=== PATIENT | male | born 1975 | race Hispanic/Latino ===

== ENCOUNTER 2016-11-19 06:53 | Inpatient (IN) | payer MEDICARE, OTHER ==
--- NOTE | 2016-11-19 07:44 | ED PDOC ---
HPI: Psych/Substance Abuse Time Seen by Provider: 11/19/16 07:10 Chief Complaint (Nursing): Psychiatric Evaluation Chief Complaint (Provider): suicidal ideation History Per: Patient History/Exam Limitations: no limitations Additional Complaint(s): 41yo male w/ Hx spinal stimulator implanted, depression comes to the ED with family member comes to the ED complaining of suicidal ideations for several days. States he's also been drinking a lot of alcohol recently. He reports leg swelling but denies chest pain or shortness of breath States he's been diagnosed with DVTs, PEs last occurred approximately 6 months ago. Stopped taking Warfarin 6mg, months ago, when his doctor retired. Also notes that while he's had marta filters Last dose of methadone was yesterday. Past Medical History Reviewed: Historical Data, Nursing Documentation, Vital Signs Vital Signs: Last Vital Signs Temp 98.2 F 11/19/16 07:01 Pulse 102 H 11/19/16 07:01 Resp 18 11/19/16 07:01 BP 143/96 H 11/19/16 07:01 Pulse Ox 95 11/19/16 07:01 - Medical History PMH: Deep Vein Thrombosis, Fractures, Pulmonary Embolism Denies: HIV, Chronic Kidney Disease - Surgical History Surgical History: Cholecystectomy - Family History Family History: States: Unknown Family Hx - Living Arrangements Living Arrangements: With Family - Social History Alcohol: > 2 Drinks/Day - Home Medications Home Medications: Ambulatory Orders Medication Instructions Recorded Methadone HCl [Methadose] 160 mg PO DAILY 11/19/16 - Allergies Allergies/Adverse Reactions: Allergies Allergy/AdvReac Type Severity Reaction Status Date / Time No Known Allergies Allergy Verified 05/16/15 18:35 Review of Systems ROS Statement: Except As Marked, All Systems Reviewed And Found Negative Cardiovascular: Negative for: Chest Pain Respiratory: Negative for: Shortness of Breath Psych: Positive for: Suicidal ideation Physical Exam - Reviewed Nursing Documentation Reviewed: Yes Vital Signs Reviewed: Yes - Physical Exam Appears: Positive for: Non-toxic, No Acute Distress Head Exam: Positive for: ATRAUMATIC, NORMAL INSPECTION, NORMOCEPHALIC Skin: Positive for: Warm, Dry Eye Exam: Positive for: EOMI, PERRL Cardiovascular/Chest: Positive for: Regular Rate, Rhythm Respiratory: Positive for: Normal Breath Sounds. Negative for: Rales, Rhonchi, Wheezing Gastrointestinal/Abdominal: Positive for: Normal Exam, Soft. Negative for: Tenderness Extremity: Positive for: Normal ROM - Laboratory Results Result Diagrams: 11/19/16 08:04 11/20/16 05:45 - ECG O2 Sat by Pulse Oximetry: 95 (RA) Pulse Ox Interpretation: Normal Medical Decision Making Medical Decision Makin: Alcohol level elevated. Remained on 1:1. Positive for DVTs in bilateral lower extremities. Patient made aware of findings. Cannot medically clear for psych. Lovenox started as pt noncompliant w coumadin. D/w medicine provider relations specialist Dr Suggs for medical admission and stabilization. ED OBSERVATION Date of observation admission: 11/19/16 Time of observation admission: 09:14 - Progress Note Progress Note: monitored for signs etoh withdrawal and or PE, remained without dyspnea but has acute b/l DVTs. Disposition - Clinical Impression Clinical Impression: Lower extremity deep venous thrombosis, Methadone maintenance therapy patient, Alcohol abuse, Depression - Patient ED Disposition Is Patient to be Admitted: Yes Counseled Patient/Family Regarding: Studies Performed, Diagnosis - Disposition Disposition Time: 09:14 Condition: STABLE - Pt Status Changed To: Hospital Disposition Of: Inpatient - Admit Certification Admit to Inpatient:: After my assessment, the patient will require hospitalization for at least two midnights. This is because of the severity of symptoms shown, intensity of services needed, and/or the medical risk in this patient being treated as an outpatient. - POA Present On Arrival: None Additional Comments - Additional Comments Additional Comments: Scribe Attestation: Documented by Woody Howe acting as a scribe for Mendez Guerrero DO. Provider Scribe Attestation: All medical record entries made by the Scribe were at my direction and personally dictated by me. I have reviewed the chart and agree that the record accurately reflects my personal performance of the history, physical exam, medical decision making, and the department course for this patient. I have also personally directed, reviewed, and agree with the discharge instructions and disposition.
--- NOTE | 2016-11-19 07:55 | CARD ---
APPROVED REPORT EKG Measurement Heart [id number] <Conclusion> Normal sinus rhythm Nonspecific T wave abnormality Abnormal ECG
[2016-11-19 08:12] LABS: BASO # 0.1 K/uL (0.0-0.2); BASO % 0.8 % (0.0-2.0); EOS % 0.1 % (0.0-4.0); HEMATOCRIT 43.5 % (35.0-51.0); LYMPH # 0.9 K/uL (1.0-4.3); LYMPH % 11.4 % (20.0-40.0); MEAN CORPUSCULAR HEMOGLOBIN 24.3 pg (27.0-31.0); MEAN CORPUSCULAR HGB CONC 31.1 g/dL (33.0-37.0); MEAN PLATELET VOLUME 7.5 fl (7.2-11.7); MONO # 0.4 K/uL (0.0-0.8); MONO % 4.9 % (0.0-10.0); NEUT # 6.2 K/uL (1.8-7.0); NEUT % 82.8 % (50.0-75.0); NRBC % 0.1 % (0.0-0.0); RED CELL DISTRIBUTION WIDTH 18.1 % (11.5-14.5); WHITE BLOOD COUNT 7.5 K/uL (4.8-10.8)
[2016-11-19 08:17] LABS: MEAN CELL VOLUME 78.4 fl (80.0-94.0)
[2016-11-19 08:24] LABS: ALB/GLOB RATIO 1.4 (1.0-2.1); ALCOHOL SERUM 287 mg/dl (0-10); ALKALINE PHOSPHATASE 59 U/L (38-126); ALT/SGPT 87 U/L (21-72); AST/SGOT 140 U/L (17-59); BILIRUBIN,TOTAL 0.5 mg/dl (0.2-1.3); BLOOD UREA NITROGEN 12 mg/dl (9-20); CARBON DIOXIDE 21 mmol/L (22-30); CHLORIDE 97 mmol/L (98-107); GFR AFRICAN-AMERICAN > 60; GLUCOSE,RANDOM 80 mg/dL (75-110); POTASSIUM 4.9 MMOL/L (3.6-5.0); SODIUM 140 mmol/l (132-148); TOTAL PROTEIN 6.9 G/DL (6.3-8.2)
[2016-11-19 08:39] LABS: PARTIAL THROMBOPLASTIN TIME 23.7 SECONDS (23.3-32.5)
--- NOTE | 2016-11-19 10:10 | US ---
Bilateral lower extremity ultrasound. Indication: Rule out DVT Technique: Duplex ultrasound evaluation of the bilateral lower extremity Comparison: None available Findings: Right lower extremity: Nonocclusive thrombus involving the distal femoral vein and popliteal vein. The common femoral vein and proximal and mid portions of the femoral vein appear patent. The posterior tibial veins appear patent. Left lower extremity: Nonocclusive thrombus identified involving the mid and distal femoral vein as well as popliteal vein. 1 of the paired posterior tibial veins appears noncompressible without evidence of flow. Fluid collection within the left popliteal fossa measures approximately 5.7 x 2.3 x 2.5 cm compatible with Escamilla's cyst. Impression: Bilateral lower extremity thrombus as above. 5.7 x 2.3 x 2.5 cm left Escamilla's cyst. The treasury associate notified the patient's ER nurse upon completion of the study.
[2016-11-19] MEDS: Enoxaparin 150 mg Syringe SC ONE (10:51)
[2016-11-19 15:05] VITALS: BMI 34.4
[2016-11-19] MEDS ORDERED: Multivitamin (MVI) 10 ML, Thiamine 100 MG, Folic Acid 1 MG in Sodium Chloride 0.9% 1,00... IV ONE (15:09)
[2016-11-19] MEDS: Sodium Chloride 0.9% 1,000 ML IV SCH (19:37)
[2016-11-19] MEDS: Enoxaparin 150 mg Syringe SC SCH (21:10)
[2016-11-20] MEDS: Sodium Chloride 0.9% 1,000 ML IV SCH (00:55)
[2016-11-20 07:54] LABS: ALB/GLOB RATIO 1.2 (1.0-2.1); ALKALINE PHOSPHATASE 43 U/L (38-126); ALT/SGPT 69 U/L (21-72); AST/SGOT 96 U/L (17-59); BILIRUBIN,TOTAL 1.1 mg/dl (0.2-1.3); BLOOD UREA NITROGEN 12 mg/dl (9-20); CALCIUM 7.7 mg/dL (8.4-10.2); CARBON DIOXIDE 29 mmol/L (22-30); CHLORIDE 95 mmol/L (98-107); GFR AFRICAN-AMERICAN > 60; GLUCOSE,RANDOM 66 mg/dL (75-110); POTASSIUM 4.5 MMOL/L (3.6-5.0); SODIUM 136 mmol/l (132-148); TOTAL PROTEIN 5.9 G/DL (6.3-8.2)
[2016-11-20] MEDS: Enoxaparin 150 mg Syringe SC SCH ×2 (08:42→20:41)
--- NOTE | 2016-11-20 12:01 | CP.PCM.CON ---
History of Present Illness - History of Present Illness History of Present Illness: psychiatry consult ordered by dr. irwin reason: alcohol use, suicidal thoughts, depression cc: i came here for help hpi: 41 yo male, living in [place] with family. pt has history of a back injury at work resulting in spinal fx and multiple surgeries including implanting spinal stimulator. pt takes 160mg methadone for pain. he has a history of dvt's, PEs and has a marta filter in place. pt states he stopped taking all of his medications with the exception of the methadone after his doctor retired. over the last 2-3 months he has started drinking heavily- up to 4 pints of vodka daily. he has progressively become more isolated and stopped leaving his home. his anxiety progressed to not wanting to even see his family members. he feels sad, hopeless and reports wishing that he would "not wake up" after drinking alcohol. he has stopped eating and caring for self. it appears he has lost abouty 30lbs in the last 4 months. his last drink was 11/18. he is getting librium on the medical floor. he is denying any a/v hallucinations. no evidence of pelon. he denies using any other substances outside of alcohol. past psych: reports being on a psych unit 2 years ago, did not f/u with outpt treatment. cannot recall meds. pt states he has a nephew who committed suicide. substance use: denies using cigarettes. has tried heroin when ran out of pain meds in past, was dependent on opioid pain meds and is now taking methadone 160mg daily from a clinic (he is given his week supply every saturday) medical: see dr. irwin's admission note. pt with obesity, back injury, s/p marta filter, chronic back injury. uses walker at home. social: , originally [place]. denies legal problems. mse: pt is alert, oriented x 3. mood is depressed. affect tearful. thoughts are linear. speech is appropriate rate, tone and volume. he is mildly tremulous. he reports passive suicidal thoughts. denies plan/intent. states he feels safe here in hospital and want's help. denies auditory/visual hallucinations. fair i/ j. assessment: alcohol use disorder in withdrawal, uncomplicated major depression recurrent moderate recommendation: pt can be admitted to 3 unit when medically cleared by the primary team (pt needs hospital bed/has walker at home) would maintain 1:1 tonight and will reassess tomorrow to discontinue monitor/treat alcohol withdrawal t/c starting an ssri medication when acute alcohol withdrawal is more resolved discussed with dr. irwin's shake loaderpepe Past Patient History - Infectious Disease Hx of Infectious Diseases: None - Tetanus Immunizations Tetanus Immunization: Unknown - Past Medical History & Family History Past Medical History?: Yes - Past Social History Smoking Status: Never Smoked - CARDIAC Hx Cardiac Disorders: Yes Other/Comment: DVT-RIGHT LOWER LEG/LUNGS - PULMONARY Hx Respiratory Disorders: Yes Hx Pulmonary Embolism: Yes - NEUROLOGICAL Hx Neurological Disorder: No - HEENT Hx HEENT Problems: No - RENAL Hx Chronic Kidney Disease: No - ENDOCRINE/METABOLIC Hx Endocrine Disorders: No - HEMATOLOGICAL/ONCOLOGICAL Hx Blood Disorders: No Hx AIDS: No Hx Human Immunodeficiency Virus (HIV): No - INTEGUMENTARY Hx Dermatological Problems: No - MUSCULOSKELETAL/RHEUMATOLOGICAL Hx Musculoskeletal Disorders: Yes Hx Back Pain: Yes Hx Falls: No Hx Fractures: Yes - GASTROINTESTINAL Hx Gastrointestinal Disorders: No - GENITOURINARY/GYNECOLOGICAL Hx Genitourinary Disorders: No - PSYCHIATRIC Hx Psychophysiologic Disorder: Yes Hx Depression: Yes Hx Emotional Abuse: No Hx Physical Abuse: No Hx Substance Use: No - SURGICAL HISTORY Hx Surgeries: Yes Hx Cholecystectomy: Yes Other/Comment: STOMACH BYPASS X 2 , 8 BACK SURGERIES 2002 - ANESTHESIA Hx Anesthesia: Yes Hx Anesthesia Reactions: No Hx Malignant Hyperthermia: No Meds Allergies/Adverse Reactions: Allergies Allergy/AdvReac Type Severity Reaction Status Date / Time No Known Allergies Allergy Verified 05/16/15 18:35 - Medications Medications: Current Medications Chlordiazepoxide (Librium) 50 mg PO Q8 [facility] Enoxaparin Sodium (Lovenox) 130 mg SC Q12 [facility] PRN Reason: Protocol Last Admin: 11/20/16 08:42 Dose: 130 mg Folic Acid (Folic Acid) 1 mg PO DAILY [facility] Sodium Chloride (Sodium Chloride 0.9%) 1,000 mls @ 125 mls/hr IV .Q8H [facility] Stop: 11/20/16 15:31 Last Admin: 11/20/16 00:55 Dose: 125 mls/hr Lorazepam (Ativan) 1 mg PO TID PRN PRN Reason: Agitation Methadone HCl (Methadone) 160 mg PO DAILY [facility] Last Admin: 11/20/16 08:39 Dose: 160 mg Ondansetron HCl (Zofran Inj) 4 mg IVP Q6 PRN PRN Reason: Nausea/Vomiting Last Admin: 11/19/16 15:07 Dose: 4 mg Thiamine HCl (Vitamin B1 Tab) 100 mg PO DAILY [facility] Results - Vital Signs Recent Vital Signs: Last Vital Signs Temp 98.4 F 11/20/16 08:00 Pulse 77 11/20/16 08:00 Resp 18 11/20/16 08:00 BP 147/89 11/20/16 08:00 Pulse Ox 92 L 11/20/16 08:00 - Labs Result Diagrams: 11/19/16 08:04 11/20/16 05:45 Labs: Laboratory Results - last 24 hr 11/19/16 11/20/16 12:30 05:45 Sodium 136 Potassium 4.5 Chloride 95 L Carbon Dioxide 29 Anion Gap 17 BUN 12 Creatinine 0.8 Est GFR ( Amer) > 60 Est GFR (Non-Af Amer) > 60 Random Glucose 66 L Calcium 7.7 L Total Bilirubin 1.1 AST 96 H D ALT 69 Alkaline Phosphatase 43 Total Protein 5.9 L Albumin 3.2 L Globulin 2.7 Albumin/Globulin Ratio 1.2 Urine Opiates Screen Negative Urine Methadone Screen Positive H Ur Barbiturates Screen Negative Ur Phencyclidine Scrn Negative Ur Amphetamines Screen Negative U Benzodiazepines Scrn Negative U Oth Cocaine Metabols Negative U Cannabinoids Screen Negative
--- NOTE | 2016-11-20 19:02 | HP ---
CHIEF COMPLAINT: Suicidal ideation and psychiatric evaluation. HISTORY OF PRESENT ILLNESS: This is a 41-year-old male, known case of chronic back pain treated with spinal stimulator and also has a history of depression and alcohol abuse, who was having suici sagrario ideation for several days. The patient was brought to the Emergency Room where the patient was f ound to be in alcohol withdrawal so the patient was admitted to the medical service and psychiatry is on consult. REVIEW OF SYSTEMS: At this time is positive for jitteriness and alcohol withdrawal symptoms. Review of systems otherwise is negative for headache, dizziness, syncope, loss of consciousness, chest pain , shortness of breath, nausea, vomiting, diarrhea, constipation, joint or extremity pain. Revi ew of systems is positive for jitteriness and tremors. Review of systems of all other organ systems is unremarkable except psychiatric review of systems. PAST MEDICAL HISTORY: Is significant for chronic back pain. The patient's past medical history is a lso significant for hypercoagulable status with mutation and antiphospholipid antibody syndrome . PAST SURGICAL HISTORY: Remarkable for multiple surgeries in the past. PERSONAL HISTORY: The patient is currently a nonsmoker, nondrinker, no substance abuse. MEDICATIONS: The patient is on methadone. SOCIAL HISTORY: The patient lives at home with family. FAMILY HISTORY: Noncontributory. PHYSICAL EXAMINATION: GENERAL: Well-built, well-nourished, overweight 41-year-old male in no acute distress. VITAL SIGNS: Temperature 98.4, pulse 77, respirations 18, blood pressure 147/89. HEENT: Pupils reacting to light. Normocephalic, atraumatic skull. The patient is wearing glasses. NECK: No JVD, no thyromegaly, no lymphadenopathy, no nystagmus. HEART: S1, S2 normal, regular. No significant murmur, gallop or rub is heard. LUNGS: Shows good bilateral air exchange. No rales or rhonchi. ABDOMEN: Soft, nontender, no organomegaly, no fluid. Bowel sounds are plus. EXTREMITIES: The patient does have jitteriness and tremors of upper extremity. The patient otherwis e has no edema, no calf swelling, no tenderness, no acute ischemia. CENTRAL NERVOUS SYSTEM: Essentially unchanged. The patient has also jitteriness consistent with alc ohol withdrawal. DIAGNOSTIC DATA: Available diagnostic data reviewed. WBC 7.5, hemoglobin 13.5, hematocrit 43.5, santi telet 189. PT 10.7, PTT 23.7. Sodium 140, potassium 4.9, chloride 97, bicarbonate 21, BUN 12, creat inine 0.9. SMA-12 shows AST of 140, ALT of 87; otherwise, SMA-12 is unremarkable. EKG does not reve al any acute ST-T changes. Bilateral lower extremity ultrasound shows thrombosis. ADMITTING IMPRESSION: Alcohol withdrawal, alcohol abuse, suicidal ideation, hypercoagulable status, obesity. PLAN: As ordered. The case and plan was discussed with the patient. Fish Suggs MD cc: [id number] TT: 11/20/2016 19:02:22 long
[2016-11-21] MEDS: Enoxaparin 150 mg Syringe SC ONE (09:08)
[2016-11-21] MEDS: Enoxaparin 150 mg Syringe SC SCH ×2 (13:15→20:03)
--- NOTE | 2016-11-21 14:05 | PCM.PYCHPN ---
Psychiatric Progress Note - Psychiatric Progress Note Patient seen today, length of contact: discussed with RN, reviewed chart Patient Chief Complaint: the withdrawal was bad Problems Identified/Issues Discussed: pt calm currently. states he still wants to come to psychiatry for treatment of depression. is agreeable to take zoloft today. reported feeling anxious, tremulous last night. no psychosis/confusion. Medication Change: Yes (start zoloft; team has increased librium) Medical Record Reviewed: Yes Mental Status Examination - Cognitive Function Orientation: Person, Place, Situation, Time Memory: Intact Attention: WNL Concentration: WNL Association: WNL Fund of Knowledge: [facility] Decription of patient's judgement and insights: fair - Mood Mood: Depressed, Anxious - Affect Affect: Depressed - Speech Speech: Appropriate - Formal Thought Process Formal Thought Process: No Impairment - Suicidal Ideation Suicidal Ideation: No Plan: denies suicidal thoughts currently. - Homicidal Ideation Homicidal Ideation: No Goal/Treatment Plan - Goal/Treatment Plan Need for Continued Stay: Remain at risks for inpatient hospitalization, Severe functional impairment Progress Toward Problem(s) and Goals/Treatment Plan: alcohol dependence major depression recurrent moderate remains depressed withdrawal symptoms still present not yet medically cleared will start zoloft to initiate treatment for depression can transfer to 3ns unit when medically cleared will continue to follow
[2016-11-21] MEDS ORDERED: Diatriz Meglumine/Diatriz Sod 30 ML BOTTLE PO ONE (14:09)
[2016-11-21] MEDS ORDERED: Barium Sulfate Susp 2.1% w/v, 2.0% w/w 450 mL Bottle PO ONE (14:09)
--- NOTE | 2016-11-21 14:31 | CP.PCM.CON ---
History of Present Illness - History of Present Illness History of Present Illness: This is a 41 yrs old male who was admitted for shortness of breath, bilateral leg swelling, and back pain. Pt is well known to me because of a h/o frequent thromboembolic disease. I had seen him in 2014 when he had a bilateral lower extremity DVT. 10 yrs prior to that he had another episode of DVT and had a IVC stent placed. He was on coumadin for a few months and was discontinued. 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 He had been on coumdin for 1 yr but stopped taking the coumadin. He started drinking heavily, and was depressed.. He came to the ER with the above symptoms, and was admitted. He has not lost any weight, and has no bleeding from any site. He has a h/o spinal stenosis and has a spinal stimulator in place. He also had suicidal ideation Past Patient History - Infectious Disease Hx of Infectious Diseases: None - Tetanus Immunizations Tetanus Immunization: Unknown - Past Medical History & Family History Past Medical History?: Yes - Past Social History Alcohol: > 2 Drinks/Day - CARDIAC Hx Cardiac Disorders: Yes Other/Comment: DVT-RIGHT LOWER LEG/LUNGS - PULMONARY Hx Pulmonary Embolism: Yes - NEUROLOGICAL Hx Neurological Disorder: No - HEENT Hx HEENT Problems: No - RENAL Hx Chronic Kidney Disease: No - ENDOCRINE/METABOLIC Hx Endocrine Disorders: No - HEMATOLOGICAL/ONCOLOGICAL Hx Human Immunodeficiency Virus (HIV): No - INTEGUMENTARY Hx Dermatological Problems: No - MUSCULOSKELETAL/RHEUMATOLOGICAL Hx Fractures: Yes - GASTROINTESTINAL Hx Gastrointestinal Disorders: No - GENITOURINARY/GYNECOLOGICAL Hx Genitourinary Disorders: No - PSYCHIATRIC Hx Psychophysiologic Disorder: Yes Hx Depression: Yes Hx Emotional Abuse: No Hx Physical Abuse: No Hx Substance Use: No - SURGICAL HISTORY Hx Cholecystectomy: Yes - ANESTHESIA Hx Anesthesia: Yes Hx Anesthesia Reactions: No Hx Malignant Hyperthermia: No Meds Allergies/Adverse Reactions: Allergies Allergy/AdvReac Type Severity Reaction Status Date / Time No Known Allergies Allergy Verified 05/16/15 18:35 - Medications Medications: Current Medications Barium Sulfate (Readi-Cat 2) 150 ml PO ONCE ONE Stop: 11/21/16 14:10 Chlordiazepoxide (Librium) 50 mg PO Q6 [facility] Last Admin: 11/21/16 09:04 Dose: 50 mg Diatrizoate Meglum/Diatrizoate Sod (CarlGastroview 66-10% (30 Ml)) 30 ml PO ONCE ONE Stop: 11/21/16 14:10 Enoxaparin Sodium (Lovenox) 130 mg SC Q12 [facility] PRN Reason: Protocol Last Admin: 11/21/16 13:15 Dose: 130 mg Folic Acid (Folic Acid) 1 mg PO DAILY [facility] Last Admin: 11/21/16 09:07 Dose: 1 mg Lorazepam (Ativan) 1 mg PO TID PRN PRN Reason: Agitation Last Admin: 11/21/16 06:45 Dose: 1 mg Methadone HCl (Methadone) 160 mg PO DAILY [facility] Last Admin: 11/21/16 09:05 Dose: 160 mg Ondansetron HCl (Zofran Inj) 4 mg IVP Q6 PRN PRN Reason: Nausea/Vomiting Last Admin: 11/19/16 15:07 Dose: 4 mg Sertraline HCl (Zoloft) 25 mg PO DAILY [facility] Thiamine HCl (Vitamin B1 Tab) 100 mg PO DAILY [facility] Last Admin: 11/21/16 09:07 Dose: 100 mg Physical Exam - Additional Findings Additional findings: P/E; Alert, well oriented in no acute distress Neck; Supple, no adenopathy Chest; Clear, no rales or rhonchi Heart; RSR, no murmur Abd; Soft, no mass, no h/s megaly Lower extremities are both edematous. Results - Vital Signs Recent Vital Signs: Last Vital Signs Temp 97.5 F L 11/21/16 12:00 Pulse 83 11/21/16 12:00 Resp 18 11/21/16 12:00 BP 147/93 H 11/21/16 12:00 Pulse Ox 93 L 11/21/16 12:00 - Labs Result Diagrams: 11/19/16 08:04 11/20/16 05:45 Assessment & Plan - Assessment and Plan (Free Text) Assessment: Impression; Bilateral lower extremity DVT, r/o pulmonary embolism. as well Alcoholic liver disease R/O malignant process. Continue the Lovenox, and will then switch him to coumadin. Plan: Plan; Will do a ct scan of a chest , abd and pelvis to look for PE or a occult malignancy. - Date & Time Date: 11/21/16 Time: 14:40
[2016-11-22] MEDS ORDERED: Iohexol 240 (50 ml) PO ONE (06:00)
[2016-11-22 07:34] LABS: ALB/GLOB RATIO 1.2 (1.0-2.1); AST/SGOT 79 U/L (17-59); BILIRUBIN,TOTAL 0.3 mg/dl (0.2-1.3); BLOOD UREA NITROGEN 6 mg/dl (9-20); CALCIUM 8.3 mg/dL (8.4-10.2); CARBON DIOXIDE 27 mmol/L (22-30); CHLORIDE 102 mmol/L (98-107); GFR AFRICAN-AMERICAN > 60; GLUCOSE,RANDOM 83 mg/dL (75-110); POTASSIUM 3.7 MMOL/L (3.6-5.0); SODIUM 137 mmol/l (132-148); TOTAL PROTEIN 5.8 G/DL (6.3-8.2)
[2016-11-22 07:38] LABS: HEMATOCRIT 36.3 % (35.0-51.0); MEAN CELL VOLUME 79.6 fl (80.0-94.0); MEAN CORPUSCULAR HEMOGLOBIN 24.5 pg (27.0-31.0); MEAN CORPUSCULAR HGB CONC 30.8 g/dL (33.0-37.0); RED CELL DISTRIBUTION WIDTH 17.7 % (11.5-14.5); WHITE BLOOD COUNT 4.7 K/uL (4.8-10.8)
[2016-11-22 07:39] LABS: ALKALINE PHOSPHATASE 50 U/L (38-126); ALT/SGPT 69 U/L (21-72)
--- NOTE | 2016-11-22 08:13 | PN ---
DATE: 11/21/2016 The patient seen and examined. Interim events noted. Consults noted, appreciated. Psychiatric foll owup and intervention noted and appreciated. The patient remains in progressive care unit on telemet ry monitoring. The patient feels okay. No specific complaint of chest pain or shortness of breath. Still feels tremulousness, but improved, controlled with medication and no real no sign of wit hdrawal. PHYSICAL EXAMINATION: GENERAL: The patient is in no acute distress. VITAL SIGNS: Stable. HEART: S1, S2 normal, regular. LUNGS: Good bilateral air exchange. ABDOMEN: Soft, nontender. EXTREMITIES: No edema, no calf swelling, no tenderness, no acute ischemia. CENTRAL NERVOUS SYSTEM: Essentially unchanged. DIAGNOSTIC DATA: Available diagnostic data reviewed. Overall, patient's general medical condition is stable, alcohol withdrawal is getting under control, still not 100% controlled, though. PLAN: As ordered. DIAGNOSTIC DATA: Available diagnostic data reviewed. Telemetry monitoring does not reveal significa nt arrhythmia. Fish Suggs MD cc: [id number] TT: 11/21/2016 09:20:01 Confirmation # [id number] Dictation # [id number]
[2016-11-22] MEDS: Enoxaparin 150 mg Syringe SC SCH ×2 (08:57→21:04)
--- NOTE | 2016-11-22 09:12 | CP.PCM.PN ---
Subjective - Date & Time of Evaluation Date of Evaluation: 11/22/16 Time of Evaluation: 09:07 - Subjective Subjective: Pt is still having some tremors this morning. He seems alert and awake ,aware about his condition. He is going for a CT scan today to determine if there is any malignancy present, and if there is a pulmonary embolus.Will continue on lovenox. Objective - Vital Signs/Intake and Output Vital Signs (last 24 hours): Temp Pulse Resp BP Pulse Ox 98.3 F 85 18 126/87 95 11/22/16 08:13 11/22/16 08:13 11/22/16 08:13 11/22/16 08:13 11/22/16 08:13 - Medications Medications: Current Medications Chlordiazepoxide (Librium) 50 mg PO Q6 [facility] Last Admin: 11/22/16 09:00 Dose: 50 mg Enoxaparin Sodium (Lovenox) 130 mg SC Q12 [facility] PRN Reason: Protocol Last Admin: 11/22/16 08:57 Dose: 130 mg Folic Acid (Folic Acid) 1 mg PO DAILY [facility] Last Admin: 11/22/16 08:59 Dose: 1 mg Lorazepam (Ativan) 1 mg PO TID PRN PRN Reason: Agitation Last Admin: 11/22/16 04:09 Dose: 1 mg Methadone HCl (Methadone) 160 mg PO DAILY [facility] Last Admin: 11/22/16 09:04 Dose: 160 mg Ondansetron HCl (Zofran Inj) 4 mg IVP Q6 PRN PRN Reason: Nausea/Vomiting Last Admin: 11/19/16 15:07 Dose: 4 mg Sertraline HCl (Zoloft) 25 mg PO DAILY [facility] Last Admin: 11/22/16 08:58 Dose: 25 mg Thiamine HCl (Vitamin B1 Tab) 100 mg PO DAILY [facility] Last Admin: 11/22/16 08:58 Dose: 100 mg - Labs Labs: 11/22/16 06:05 11/22/16 06:05 PT 10.7 SECONDS (9.6-11.2) 11/19/16 08:04 INR 1.03 (0.92-1.08) 11/19/16 08:04 APTT 23.7 SECONDS (23.3-32.5) 11/19/16 08:04
[2016-11-22] MEDS ORDERED: Sodium Chloride 0.9% 50 ML IV ONE (09:59)
[2016-11-22] MEDS ORDERED: Iohexol 300 100 ML IJ ONE (09:59)
--- NOTE | 2016-11-22 10:44 | PN ---
DATE: 11/22/2016 SUBJECTIVE: The patient seen and examined. Interim events noted. Consults noted, appreciated. The patient remains in progressive care unit on telemetry monitoring. The patient feels okay. No speci fic complaint of chest pain, no shortness of breath. PHYSICAL EXAMINATION: GENERAL: The patient is in no acute distress. VITAL SIGNS: Stable. HEART: S1, S2 normal, regular. LUNGS: Good bilateral air exchange. ABDOMEN: Soft, nontender. EXTREMITIES: No calf swelling, no tenderness, no acute ischemia. CENTRAL NERVOUS SYSTEM: Essentially unchanged. DIAGNOSTIC DATA: Available diagnostic data reviewed. Overall, patient's general medical condition is stable. Alcohol withdrawal signs have improved. We will get psychiatric followup for patient for possible transfer to inpatient psych treatment. Case a nd plan discussed with patient. DIAGNOSTIC DATA: Available diagnostic data reviewed. Telemetry monitoring does not reveal significa nt arrhythmia. PLAN: As ordered. Fish Suggs MD cc: [id number] TT: 11/22/2016 10:44:17 Confirmation # [id number] Dictation # [id number] bridgette
--- NOTE | 2016-11-22 13:23 | CT ---
PROCEDURE: CT Chest, Abdomen and Pelvis with intravenous contrast HISTORY: r/o PE, malignancy COMPARISON: CT chest from 06/27/[address] abdomen and pelvis from 06/02/2015 TECHNIQUE: Multidetector CT scan of the chest, abdomen and pelvis was performed after intravenous administration of contrast. Oral contrast was administered. Coronal and sagittal reformatted images were obtained. IV dose administered: 95 mL Omnipaque 300 Radiation dose: Total exam DLP = 1639.58 mGy-cm. FINDINGS: CT CHEST WITH CONTRAST: The examination is of suboptimal diagnostic quality for evaluation of pulmonary embolism due to missed bolus. Allowing for this, there is no large central pulmonary embolism. LUNGS: There is minimal bibasilar atelectasis. No nodule, mass or consolidation. There are no endobronchial lesions. MEDIASTINUM: The heart is normal in size. There is no pericardial effusion. The aorta is normal in caliber. LYMPH NODES: There is a 9 mm pretracheal lymph node. There is no pathologic axillary, mediastinal or hilar lymphadenopathy. PLEURA: No pneumothorax. No pleural fluid. BONES: Within normal limits for the patient's age. OTHER FINDINGS: None. CT ABDOMEN AND PELVIS: LIVER: The liver is enlarged and there is diffuse low-attenuation. No focal mass or ductal dilatation. GALLBLADDER AND BILE DUCTS: Surgically absent. PANCREAS: Normal in size and there is homogeneous enhancement without focal mass or ductal dilatation. SPLEEN: The spleen is enlarged and measures 14 cm in craniocaudad dimension. There is homogeneous enhancement without focal mass. ADRENALS: Both adrenal glands are normal in size. There is a stable 8 mm adenoma in the medial limb of the left adrenal gland. KIDNEYS AND URETERS: Both kidneys are normal in size and there is homogeneous enhancement without solid or cystic mass or hydronephrosis. VASCULATURE: The aorta is normal in caliber. There is normal vascular perfusion. There is stable position of an infrarenal IVC filter. There is mild asymmetric enlargement of the right common femoral vein with a possible partial thrombus however definitive evaluation is limited due to non opacification of all veins. BOWEL: Status post gastric bypass surgery. The proximal small bowel loops are normal in caliber. There is a redundant sigmoid colon and large amount of stool in the colon and fecal stasis in the rectum. The cecum is located in the right mid abdomen. APPENDIX: Not visualized. PERITONEUM: No free fluid. No free air. LYMPH NODES: No enlarged lymph nodes. BLADDER: Normal in appearance. REPRODUCTIVE: Unremarkable. BONES: Status post posterior spinal decompression and fixation with transpedicular screws. A neurostimulator lead is identified in the lower thoracic spine. OTHER FINDINGS: None. IMPRESSION: 1. Evaluation of pulmonary embolism is not possible due to missed bolus. Allowing for this, no large central pulmonary embolism. 2. No evidence of consolidation, pneumothorax or pleural effusion. No mediastinal adenopathy. 3. Status post gastric bypass surgery, severe constipation and fecal stasis in the rectum. No evidence of bowel obstruction. 4. Mild hepatosplenomegaly and hepatic steatosis. 5. No evidence of metastatic disease in the chest, abdomen or pelvis. Additional comments as described above.
[2016-11-22 16:08] VITALS: RESP 20; TEMP 97.8
[2016-11-22 20:12] VITALS: BP 136/88; PULSE 78; O2SAT 96
== END 2016-11-22 22:50 | DRG 300 ==
LOC: H.ER 06:53 → H.EROBSV 09:14 → OBSVTOIN 10:32 → H.ERHOLD 10:32 → H.TEL 12:51 → H.STEP 11-22 22:35
PROVIDERS: ADMIT Internal Medicine; ATTEND Internal Medicine
DX: I82.411 Acute embolism and thrombosis of right femoral vein (principal); F10.239 Alcohol dependence with withdrawal, unspecified; R45.851 Suicidal ideations; I82.431 Acute embolism and thrombosis of right popliteal vein; F11.20 Opioid dependence, uncomplicated; F33.1 Major depressive disorder, recurrent, moderate; Z91.14 Patient's other noncompliance with medication regimen; G89.29 Other chronic pain; Z86.711 Personal history of pulmonary embolism; Z86.718 Personal history of other venous thrombosis and embolism; Z90.49 Acquired absence of other specified parts of digestive tract; E66.9 Obesity, unspecified

== ENCOUNTER 2016-11-22 19:02 | Inpatient (IN) | payer MEDICARE ==
[2016-11-22] MEDS ORDERED: Magnesium Hydroxide Susp 30 ml UD PO PRN (23:21)
[2016-11-22] MEDS ORDERED: Bismuth Subsalicylate 262 mg/15 ml Sus (240 ml) PO PRN (23:21)
[2016-11-22] MEDS ORDERED: Alum-Mag Hydrox-Simethicone Susp (30 mL) PO PRN (23:21)
--- NOTE | 2016-11-23 08:31 | PCM.PSYCH ---
Initial Psychiatric Evaluation - Initial Psychiatric Evaluation Type of Admission: Voluntary Legal Status: Capacity Chief Complaint (in patient's own words): HPI: 41 yo male, , living with family. Pt has history of a back injury at work resulting in spinal fx and multiple surgeries including implanting spinal stimulator. He takes 160mg methadone for pain. he has a history of dvt's , PEs and has a marta filter in place. pt states he stopped taking all of his medications with the exception of the methadone after his doctor retired. over the last 2-3 months he has started drinking heavily- up to 4 pints of vodka daily. he has progressively become more isolated and stopped leaving his home. His anxiety progressed to not wanting to even see his family members. He feels sad, hopeless and reports wishing that he would "not wake up" after drinking alcohol. He has stopped eating and caring for self and has lost about 30 lbs in 4 months. His last drink was 11/18. He was getting librium on the medical floor. No a/v hallucinations. No evidence of pelon. He denies using any other substances outside of alcohol. Past psych: Reports being on a psych unit 2 years ago, did not f/u with outpt treatment. cannot recall meds. Family Hx: Has a nephew who committed suicide Substance use: No cigarette use. Has tried heroin when ran out of pain meds in past, was dependent on opioid pain meds and is now taking methadone 160mg daily from a clinic (he is given his week supply every saturday) MHx: RLE thrombectomy 06/2015, cholecystectomy, gastric banding/reversal, R/L knee surgeries, h/o DVT s/p Marta filter Social: , originally from [place]. denies legal problems. All: NKDA Current Medications: Active Medications Generic Name Dose Route Start Last Admin Trade Name Freq PRN Reason Stop Dose Admin Acetaminophen 650 mg 11/22/16 23:21 Tylenol 325mg Tab PO Q4 PRN Pain, moderate (4-7) Al Hydrox/Mg Hydrox/Simethicone 30 ml 11/22/16 23:21 Maalox Plus 30 Ml PO Q4 PRN Dyspepsia Bismuth Subsalicylate 524 mg 11/22/16 23:21 Pepto-Bismol PO Q4 PRN Diarrhea Chlordiazepoxide 50 mg 11/23/16 04:00 11/23/16 04:19 Librium PO 50 mg Q6 FRANCIA Administration Lorazepam 1 mg 11/22/16 23:59 Ativan PO TID PRN Agitation Magnesium Hydroxide 30 ml 11/22/16 23:21 Milk Of Magnesia PO HS PRN Constipation Methadone HCl 160 mg 11/23/16 09:00 Methadone PO DAILY FRANCIA Past Psychiatric History - Past Psychiatric History Previous Treatment History: Inpatient Pertinent Medical Hx (Current Medical&Sleep Prob, Allergies): Allergies Allergy/AdvReac Type Severity Reaction Status Date / Time No Known Allergies Allergy Verified 05/16/15 18:35 Methadone HCl [Methadose] 160 mg PO DAILY 11/19/16 Enoxaparin Sodium [Lovenox] 130 mg SC Q12 ml 11/22/16 Folic Acid 1 mg PO DAILY tab 11/22/16 LORazepam [Ativan] 1 mg PO TID PRN #0 tab 11/22/16 Methadone 160 mg PO DAILY tab 11/22/16 Ondansetron [Zofran Inj] 4 mg IVP Q6 PRN #0 vial 11/22/16 Sertraline [Zoloft] 25 mg PO DAILY tab 11/22/16 Thiamine [Vitamin B1 Tab] 100 mg PO DAILY tab 11/22/16 chlordiazePOXIDE [Librium] 50 mg PO Q6 cap 11/22/16 Review of Systems - Review of Systems All systems: reviewed and no additional remarkable complaints except - Musculoskeletal Musculoskeletal: Back Pain - Psychiatric Psychiatric: Abnormal Sleep Pattern, Anhedonia, Anxiety, Change in Appetite, Depression, Hopelessness, Irritability, Mood Swings Mental Status Examination - Personal Presentation Personal Presentation: Looks stated age, Obese - Affect Affect: Depressed - Motor Activity Motor Activity: Calm - Reliability in Providing Information Reliability in Providing Information: Good - Speech Speech: Organized - Mood Mood: Depressed, Anxious - Formal Thought Process Formal Thought Process: No Impairment - Obsessions/Compulsions Obsessions: No Compulsions: No - Cognitive Functions Orientation: Person, Place, Situation, Time Sensorium: Alert Attention/Concentration: Attentive Estimate of Intelligence: Average Judgement: Intact, as evidence by: Good judgement, Intact, as evidence by: Insight regarding need for hospitalization Memory: Recent intact, as evidence by: Ability to recall events of the day, Remote intact, as evidenced by: Abilit to recall sig. life events, Remote intact , as evidenced by: Ability to recall historical events - Risk Risk: Diminished functioning - Strength & Assets Inventory Strength & Assets Inventory: Family support, Cooperative - Limitations Limitations: Other (Chronic medical problems) DSM 5 DX - DSM 5 DSM 5 Diagnosis: Major Depressive Disorder, Alcohol Use Disorder - Recommended/Plan of Treatment Treatment Recommendations and Plan of Treatment: 41 yo male w/ Major Depressive Disorder and Alcohol use disorder, presents with severe depressive symptoms, anxiety, poor self care, anhedonia, weight loss / change in appetite. Patient needs acute inpatient psychiatric hospitalization for treatment and stabilization. Plan: -Admit to psychiatry unit -Start Zoloft 50 mg PO Daily, r/b/se reviewed -Individual, group and milieu tx -Medicine consult Projected ELOS: 5-7 days Discharge Plan and Discharge Criteria: Discharge to home when psychiatrically stable - Smoking Cessation Smoking Cessation Initiated: No Reason for not providing: Not indicated, no tobacco use
[2016-11-23] MEDS ORDERED: Enoxaparin 150 mg Syringe SC SCH (09:00)
[2016-11-23] MEDS: Enoxaparin 100 mg Syringe SC SCH ×2 (10:35→21:11)
[2016-11-23] MEDS: Enoxaparin 30 mg Syringe SC SCH ×2 (10:37→21:12)
--- NOTE | 2016-11-23 10:48 | CP.PCM.CON ---
History of Present Illness - History of Present Illness History of Present Illness: This is a 41 yrs old male whom I have known from previous admissions. He has a h /o DVT and Pulmonary embolism. He had a IVC filter placed about 9 yrs ago and was on coumadin. He stopped after 6 months. He redeveloped the DVT and wad admitted to [facility] when I first saw him. 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 He was also positive for anticardiolipin antibody. He was started on coumadin and followed up with me for 2 months but wa not very complaint. He took to drinking, developing cirrhotic changes in the liver and a miDVT bilaterally, and alold splenomegaly. Now he came in again with alcohol withdrawal symptoms with the thrombotic episode. The ct scan of the chest, abdomen and pelvis did not show any malignancy. He has been started on coumadin and transferred to psych unit for his depression. Past Patient History - Infectious Disease Hx of Infectious Diseases: None - Tetanus Immunizations Tetanus Immunization: Unknown - Past Medical History & Family History Past Medical History?: Yes - Past Social History Smoking Status: Never Smoked - CARDIAC Hx Cardiac Disorders: Yes Other/Comment: DVT-RIGHT LOWER LEG/LUNGS - PULMONARY Hx Pulmonary Embolism: Yes - NEUROLOGICAL Hx Neurological Disorder: No - HEENT Hx HEENT Problems: No - RENAL Hx Chronic Kidney Disease: No - ENDOCRINE/METABOLIC Hx Endocrine Disorders: No - HEMATOLOGICAL/ONCOLOGICAL Hx Human Immunodeficiency Virus (HIV): No - INTEGUMENTARY Hx Dermatological Problems: No - MUSCULOSKELETAL/RHEUMATOLOGICAL Hx Fractures: Yes - GASTROINTESTINAL Hx Gastrointestinal Disorders: No Other/Comment: Gastric Bypass with selve - GENITOURINARY/GYNECOLOGICAL Hx Genitourinary Disorders: No - PSYCHIATRIC Hx Depression: Yes Hx Substance Use: No - SURGICAL HISTORY Hx Cholecystectomy: Yes Hx Gastric Bypass Surgery: Yes - ANESTHESIA Hx Anesthesia: Yes Hx Anesthesia Reactions: No Hx Malignant Hyperthermia: No Meds Allergies/Adverse Reactions: Allergies Allergy/AdvReac Type Severity Reaction Status Date / Time No Known Allergies Allergy Verified 05/16/15 18:35 - Medications Medications: Current Medications Acetaminophen (Tylenol 325mg Tab) 650 mg PO Q4 PRN PRN Reason: Pain, moderate (4-7) Al Hydrox/Mg Hydrox/Simethicone (Maalox Plus 30 Ml) 30 ml PO Q4 PRN PRN Reason: Dyspepsia Bismuth Subsalicylate (Pepto-Bismol) 524 mg PO Q4 PRN PRN Reason: Diarrhea Chlordiazepoxide (Librium) 25 mg PO Q6 FRANCIA Enoxaparin Sodium (Lovenox) 100 mg SC Q12 FRANCIA PRN Reason: Protocol Enoxaparin Sodium (Lovenox) 30 mg SC Q12 FRANCIA Folic Acid (Folic Acid) 1 mg PO DAILY FRANCIA Lorazepam (Ativan) 1 mg PO TID PRN PRN Reason: Agitation Magnesium Hydroxide (Milk Of Magnesia) 30 ml PO HS PRN PRN Reason: Constipation Methadone HCl (Methadone) 160 mg PO DAILY FRANCIA Sertraline HCl (Zoloft) 50 mg PO DAILY FRANCIA Warfarin Sodium (Coumadin) 7.5 mg PO QD5 FRANCIA PRN Reason: Protocol Stop: 11/23/16 17:01 Physical Exam - Additional Findings Additional findings: Physical Exam; Alert, well oriented in no acute distress neck; supple, no adenopathy Chest; Clear, no rales or rhonchi Heart; RSR, no murmur Abd; Soft, no mass, no h/s megaly Results - Vital Signs Recent Vital Signs: Last Vital Signs Temp 96.3 F L 11/23/16 05:35 Pulse 80 11/23/16 05:35 Resp 20 11/23/16 05:35 BP 136/99 H 11/23/16 05:35 Pulse Ox - Labs Labs: Laboratory Results - last 24 hr 11/23/16 06:30 PT 11.4 H INR 1.10 H Assessment & Plan - Assessment and Plan (Free Text) Assessment: Plan; , bilateral lower extremity DVT, Hypercoagulable state Alcoholic liver disease - Date & Time Date: 11/23/16 Time: 10:51
--- NOTE | 2016-11-23 14:01 | CON ---
DATE: 11/23/2016 CHIEF COMPLAINT: This is a 41-year-old male who is disabled from his back problem, who also has hist ory of MTHFR mutation related hypercoagulable status who was admitted to medical floor with alcohol w ithdrawal and was stabilized and transferred to geropsych unit for management of his psychiatric issu e. REVIEW OF SYSTEMS: At this time is negative for headache, dizziness, syncope, loss of consciousness, chest pain, shortness of breath, nausea, vomiting, diarrhea, constipation, any new joint or extremit y pain. Positive for psychiatric illness. All other organ systems unremarkable. 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 PAST SURGICAL HISTORY: Remarkable for back related issues. FAMILY HISTORY: Noncontributory. MEDICATIONS: The patient is on multiple, which are as per reconciliation sheet, which was reviewed i n order. ALLERGIES: The patient is not allergic to any medications. PHYSICAL EXAMINATION: GENERAL: Well-built, well-nourished, overweight male, in no acute distress. VITAL SIGNS: Temperature afebrile, pulse 77, respirations 16, blood pressure 130/77. HEENT: Pupils reacting to light. No JVD, no thyromegaly, no lymphadenopathy, no nystagmus. Normoce phalic, atraumatic skull. HEART: S1, S2 normal, regular. LUNGS: Good bilateral air entry. ABDOMEN: Soft, nontender. EXTREMITIES: No edema, no calf swelling, no tenderness, no acute ischemia. CENTRAL NERVOUS SYSTEM: Essentially unchanged and there is no sign of any acute gross focal motor or sensory neurological deficit. DIAGNOSTIC DATA: Available reviewed. 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 PLAN: As ordered. Case and plan discussed with patient. Case and plan also discussed with psychiat risalexy. Fish Suggs MD cc: [id number] TT: 11/23/2016 14:00:53 Confirmation # [id number] Dictation # [id number] en
[2016-11-23 15:32] VITALS: O2SAT 96
[2016-11-24] MEDS: Enoxaparin 100 mg Syringe SC SCH ×2 (09:11→21:09)
[2016-11-24] MEDS: Enoxaparin 30 mg Syringe SC SCH ×2 (09:11→21:09)
--- NOTE | 2016-11-24 09:39 | PN ---
DATE: 11/24/2016 The patient seen and examined. Interim events noted. Consults noted and appreciated. Psychiatric f ollowup and intervention noted and appreciated. The patient remains in geropsych unit. The patient feels okay. No specific medical complaint. No chest pain, no shortness of breath. PHYSICAL EXAMINATION: GENERAL: The patient is in no acute distress. VITAL SIGNS: Stable. HEART: S1, S2 normal, regular. LUNGS: Good bilateral air exchange. ABDOMEN: Soft, nontender. EXTREMITIES: No calf swelling, no tenderness, no acute ischemia. CENTRAL NERVOUS SYSTEM: Essentially unchanged. DIAGNOSTIC DATA: Available diagnostic data reviewed. Hematology/oncology consult noted and apprecia mariajose. Overall, patient's general medical condition is stable. PLAN: As ordered. Fish Suggs MD cc: [id number] TT: 11/24/2016 09:38:31 Confirmation # [id number] Dictation # [id number] tn
--- NOTE | 2016-11-24 09:45 | PCM.PYCHPN ---
Psychiatric Progress Note - Psychiatric Progress Note Patient seen today, length of contact: chart reviewed, dicussed with team, pt seen in room Patient Chief Complaint: feeling depressed down, was at home had started drinking, was evaluated on general medical floor prior to admission. pt had upon admission etoh level of approx. 270, was started on prn librium on general medical floor. currently denies complaints of withdrawal. chart review that pt has been intermittently out of room, has had limited participation in recreational and therapy groups. Team meeting prior was limited 2nd pt receiving medical treatment. Social working is in process of completing full assessment. Pt has been evaluated by hematology and cardiology. Is receiving lovenox subcutaneously. Pt is has orders for methadone, prn librium and prn lorazepam. Staff report vital signs have been stable, pt has been free of falls. reports currently and prior to admission has had decreased appetite. pt/staff deny presence of wounds/ ulcers- albumin level is low 3.1. Pt has decreased platelets and is receiving lovenox- pt/staff deny presence of ecchymosis. pt was started on Zoloft 25mg upon admission po-received two doses thus far. denies notable side effects. Problems Identified/Issues Discussed: decreased mood, decreased self care, recent relapse of etoh of up to 4 pt vodka per day, estrangement from family, multiple medical illness. Medical Problems: multiple per chart Diagnostic Results: per psychiatry per medicine per nursing per social work per recreational therapy per dietary/nutrition DSM 5 Symptoms Update: anhedonia, substance use, mood disorder, family circumstance, change in level of function, isolation Medication Change: No Medical Record Reviewed: Yes Consults ordered or reviewed: per chart Mental Status Examination - Cognitive Function Orientation: Person, Place, Situation, Time Memory: Intact Attention: WNL Concentration: WNL Association: [facility] Fund of Knowledge: [facility] Decription of patient's judgement and insights: impaired - Mood Mood: Depressed, Anxious - Affect Affect: Constricted, Depressed - Speech Speech: Soft - Formal Thought Process Formal Thought Process: No Impairment - Suicidal Ideation Plan: thoughts without plan - Homicidal Ideation Homicidal Ideation: No Goal/Treatment Plan - Goal/Treatment Plan Need for Continued Stay: Remain at risks for inpatient hospitalization, Severe depression anxiety Progress Toward Problem(s) and Goals/Treatment Plan: inpt milieu vital signs and assessment per protocol and per status q 15 min observation and per clinical status, pt is in room near nursing station adjust meds per status -pt recently started on sertraline 25mg po once day vital signs must be taken before and administration of benziodiazepines as pt is receiving methadone 2nd to possible respiratory depression as well as after administration for a minimum of 2 q 15 min and the obtainment of b/p more than 90/60 and respiratory rate of 12 bpm or higher. falls precautions/bleeding precautions staff to encourage pt oob of bed prn and or change of position to decrease likelihood of thrombi/pneumonia/ulcers-wounds discharge planning in progress Estimated Date of D/C: 11/30/16 If changed, why: defers - Smoking Cessation Smoking Cessation Initiated: No Reason for not providing: defers
--- NOTE | 2016-11-25 07:53 | PN ---
DATE: 11/25/2016 MEDICAL FOLLOWUP The patient is seen and examined. Interim events noted. Consults noted and appreciated. Psychiatri c followup and intervention noted and appreciated. The patient remains in geropsych unit. The patie nt is sleepy, arousable. Denies any specific medical complaints. PHYSICAL EXAMINATION: GENERAL: The patient is in no acute distress. VITAL SIGNS: Stable. HEART: S1, S2 normal, regular. LUNGS: Good bilateral air exchange. ABDOMEN: Soft, nontender. EXTREMITIES: No edema, no calf swelling, no tenderness, no acute ischemia. CENTRAL NERVOUS SYSTEM: Essentially unchanged. DIAGNOSTIC DATA: Available diagnostic data reviewed. INR is 2.0. We will discontinue Lovenox. PLAN: As ordered. Case and plan discussed with the patient and nursing staff. Fish Suggs MD cc: [id number] TT: 11/25/2016 07:52:39 Confirmation # [id number] Dictation # [id number] beth
--- NOTE | 2016-11-26 02:49 | PCM.PYCHPN ---
Psychiatric Progress Note - Psychiatric Progress Note Patient seen today, length of contact: chart reviewed, dicussed with team, pt seen in room Patient Chief Complaint: reports is feeling a little better, depression somewhat improving, denies s/s of w/d from etoh. staff report pt has been seen ambulating via wheel chair with self propulsion. at times seen interacting with peers, seen visiting with family. denies notable side effects with medication, denies notable bleeding, bruising or bleeding when cleansing after bm. 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 Medical Problems: multiple per chart Diagnostic Results: per psychiatry per medicine per nursing per social work per recreational therapy per dietary/nutrition DSM 5 Symptoms Update: anhedonia suicidal ideations Medication Change: No Medical Record Reviewed: Yes Mental Status Examination - Cognitive Function Orientation: Person, Place, Situation, Time Memory: Intact Attention: WNL Concentration: WNL Association: [facility] Fund of Knowledge: [facility] Decription of patient's judgement and insights: impaired - Mood Mood: Depressed, Anxious - Affect Affect: Constricted, Depressed - Speech Speech: Soft - Formal Thought Process Formal Thought Process: No Impairment - Homicidal Ideation Homicidal Ideation: No Goal/Treatment Plan - Goal/Treatment Plan Need for Continued Stay: Remain at risks for inpatient hospitalization, Severe depression anxiety Progress Toward Problem(s) and Goals/Treatment Plan: inpt milieu vital signs and assessment per protocol and per status q 15 min observation and per clinical status, pt is in room near nursing station adjust meds per status team may consider increasing sertraline to 75 mg po day reportedly seen crying during visit with family vital signs must be taken before and administration of benziodiazepines as pt is receiving methadone 2nd to possible respiratory depression as well as after administration for a minimum of 2 q 15 min and the obtainment of b/p more than 90/60 and respiratory rate of 12 bpm or higher. falls precautions/bleeding precautions staff to encourage pt oob of bed prn and or change of position to decrease likelihood of thrombi/pneumonia/ulcers-wounds discharge planning in progress Estimated Date of D/C: 11/30/16 - Smoking Cessation Smoking Cessation Initiated: No Reason for not providing: pt defers
--- NOTE | 2016-11-26 09:28 | PCM.PYCHPN ---
Psychiatric Progress Note - Psychiatric Progress Note Patient seen today, length of contact: Chart reviewed, case discussed with team , patient evaluated, 35 min Patient Chief Complaint: "I'm okay." Problems Identified/Issues Discussed: Patient continues to report feelings of depression and poor appetite/sleep. When asked what reasons he has to live, he states that he wants to live for his family. He is looking forward to being discharged, but believes he still needs treatment for his chronic depression. He denies symptoms of ETOH withdrawal. patient counseled on the affect that ETOH has on mood. Supportive therapy and motivational therapy provided. NO AH/VH/SI/HI Medication Change: No Medical Record Reviewed: Yes Mental Status Examination - Cognitive Function Orientation: Person, Place, Situation, Time Memory: Intact Attention: WNL Concentration: WNL Association: WNL Fund of Knowledge: [facility] Decription of patient's judgement and insights: Fair I/J - Mood Mood: Depressed, Anxious - Affect Affect: Constricted, Depressed - Speech Speech: Soft - Formal Thought Process Formal Thought Process: No Impairment Psychotic Thoughts and Behaviors: NO AH/VH - Suicidal Ideation Suicidal Ideation: No - Homicidal Ideation Homicidal Ideation: No Goal/Treatment Plan - Goal/Treatment Plan Need for Continued Stay: Remain at risks for inpatient hospitalization, Severe depression anxiety Progress Toward Problem(s) and Goals/Treatment Plan: 41 yo male w/ Major Depressive Disorder and Alcohol use disorder, presents with severe depressive symptoms, anxiety, poor self care, anhedonia, weight loss / change in appetite. Patient needs acute inpatient psychiatric hospitalization for treatment and stabilization. Plan: -Continue Zoloft 50 mg PO Daily, will consider increasing dosage to 100 mg PO Daily -Individual, group and milieu tx -Medicine consult appreciated Estimated Date of D/C: 11/30/16
--- NOTE | 2016-11-26 10:13 | PN ---
DATE: 11/26/2016 MEDICAL FOLLOWUP The patient is seen and examined. Interim events noted. The patient feels okay. No specific compla int, no chest pain or shortness of breath. PHYSICAL EXAMINATION: GENERAL: The patient is in no acute distress. VITAL SIGNS: Stable. Physical exam is essentially unchanged. DIAGNOSTIC DATA: Available diagnostic data reviewed. Overall, the patient's general medical condition is stable. Psychiatric followup and intervention no mariajose and appreciated. PLAN: As ordered. Fish Suggs MD cc: [id number] TT: 11/26/2016 10:13:10 Confirmation # [id number] Dictation # [id number] beth
--- NOTE | 2016-11-26 10:44 | CP.PCM.PN ---
Subjective - Date & Time of Evaluation Date of Evaluation: 11/26/16 Time of Evaluation: 10:42 - Subjective Subjective: Pt is afebrile, in no acute distress. His legs are srill swollen, but no more pain. His INR is within the therapeutic range. Will continue same, Objective - Vital Signs/Intake and Output Vital Signs (last 24 hours): Temp Pulse Resp BP Pulse Ox 97.5 F L 73 20 128/76 96 11/26/16 06:00 11/26/16 06:00 11/26/16 06:00 11/26/16 06:00 11/23/16 15:07 - Medications Medications: Current Medications Acetaminophen (Tylenol 325mg Tab) 650 mg PO Q4 PRN PRN Reason: Pain, moderate (4-7) Al Hydrox/Mg Hydrox/Simethicone (Maalox Plus 30 Ml) 30 ml PO Q4 PRN PRN Reason: Dyspepsia Bismuth Subsalicylate (Pepto-Bismol) 524 mg PO Q4 PRN PRN Reason: Diarrhea Folic Acid (Folic Acid) 1 mg PO DAILY [facility] Last Admin: 11/26/16 09:10 Dose: 1 mg Lorazepam (Ativan) 1 mg PO TID PRN PRN Reason: Agitation Magnesium Hydroxide (Milk Of Magnesia) 30 ml PO HS PRN PRN Reason: Constipation Methadone HCl (Methadone) 160 mg PO DAILY [facility] Last Admin: 11/26/16 09:23 Dose: 160 mg Sertraline HCl (Zoloft) 50 mg PO DAILY [facility] Last Admin: 11/26/16 09:09 Dose: 50 mg Warfarin Sodium (Coumadin) 6 mg PO QD5 FRANCIA PRN Reason: Protocol Stop: 11/26/16 17:01 Warfarin Sodium (Coumadin) 7.5 mg PO QD5 ONE PRN Reason: Protocol Stop: 11/26/16 17:01 - Labs Labs: PT 33.9 SECONDS (9.6-11.2) H* D 11/26/16 06:59 INR 3.26 (0.92-1.08) H 11/26/16 06:59
--- NOTE | 2016-11-26 17:10 | CARD ---
APPROVED REPORT EKG Measurement Heart [id number] <Conclusion> Normal sinus rhythm Normal ECG
--- NOTE | 2016-11-27 10:25 | PN ---
DATE: 11/27/2016 CONTINUATION EXTREMITIES: No edema, no calf swelling, no tenderness, no acute ischemia. CENTRAL NERVOUS SYSTEM: Essentially unchanged. DIAGNOSTIC DATA: Available diagnostic data reviewed. INR is 3.74. Coumadin is decreased to 6 mg. Overall, patient's general medical condition is stable. PLAN: As ordered. Fish Suggs MD cc: [id number] TT: 11/27/2016 10:25:17 Confirmation # [id number] Dictation # [id number] mn
--- NOTE | 2016-11-27 13:56 | PCM.PYCHPN ---
Psychiatric Progress Note - Psychiatric Progress Note Patient seen today, length of contact: Chart reviewed, case discussed with team , patient evaluated, 35 min Patient Chief Complaint: "I'm okay." Problems Identified/Issues Discussed: Patient continues to report feelings of depression, hopelessness and poor appetite/sleep. 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 We discussed the importance of treatment with medications, psychotherapy, and structured activities. He denies current ideation to harm himself. He denies symptoms of ETOH withdrawal. Supportive therapy and motivational therapy provided. NO AH/VH/SI/HI Medication Change: Yes (Increase Zoloft to 100 mg PO daily) Medical Record Reviewed: Yes Mental Status Examination - Cognitive Function Orientation: Person, Place, Situation, Time Memory: Intact Attention: WNL Concentration: WNL Association: WNL Fund of Knowledge: [facility] Decription of patient's judgement and insights: Good I/J - Mood Mood: Depressed, Anxious - Affect Affect: Constricted, Depressed - Speech Speech: Appropriate - Formal Thought Process Formal Thought Process: No Impairment Psychotic Thoughts and Behaviors: Denies AH/VH/paranoia/delusions - Suicidal Ideation Suicidal Ideation: No - Homicidal Ideation Homicidal Ideation: No Goal/Treatment Plan - Goal/Treatment Plan Need for Continued Stay: Remain at risks for inpatient hospitalization, Severe depression anxiety Progress Toward Problem(s) and Goals/Treatment Plan: 41 yo male w/ Major Depressive Disorder and Alcohol use disorder, presents with severe depressive symptoms, anxiety, poor self care, anhedonia, weight loss / change in appetite. Patient needs acute inpatient psychiatric hospitalization for treatment and stabilization. Plan: -Increase Zoloft to 100 mg PO Daily -Individual, group and milieu tx -Medicine consult appreciated Estimated Date of D/C: 12/03/16
[2016-11-28 07:08] LABS: HEMATOCRIT 32.6 % (35.0-51.0); MEAN CELL VOLUME 78.9 fl (80.0-94.0); MEAN CORPUSCULAR HEMOGLOBIN 24.3 pg (27.0-31.0); MEAN CORPUSCULAR HGB CONC 30.8 g/dL (33.0-37.0)
[2016-11-28 07:25] LABS: ALB/GLOB RATIO 1.1 (1.0-2.1); ALKALINE PHOSPHATASE 46 U/L (38-126); ALT/SGPT 54 U/L (21-72); AST/SGOT 59 U/L (17-59); BILIRUBIN,TOTAL 0.3 mg/dl (0.2-1.3); BLOOD UREA NITROGEN 8 mg/dl (9-20); CALCIUM 8.2 mg/dL (8.4-10.2); CARBON DIOXIDE 28 mmol/L (22-30); CHLORIDE 103 mmol/L (98-107); GFR AFRICAN-AMERICAN > 60; GLUCOSE,RANDOM 81 mg/dL (75-110); POTASSIUM 4.2 MMOL/L (3.6-5.0); SODIUM 141 mmol/l (132-148); TOTAL PROTEIN 5.5 G/DL (6.3-8.2)
--- NOTE | 2016-11-28 08:49 | PN ---
DATE: 11/27/2016 The patient seen and examined. Interim events noted. Consults noted and appreciated. Hematology an d psychiatry followup and interventions noted and appreciated. The patient remains in geropsych unit . The patient feels better. No specific medical complaint. No chest pain, no shortness of breath. PHYSICAL EXAMINATION: GENERAL: The patient is in no acute distress. VITAL SIGNS: Stable. HEART: S1, S2 normal, regular. LUNGS: Good bilateral air exchange. ABDOMEN: Soft, nontender. DIAGNOSTIC DATA: Available diagnostic data reviewed. INR is 3.64. Overall, patient's general medical condition is stable. PLAN: As ordered. Fish Suggs MD cc: [id number] TT: 11/28/2016 08:49:16 Confirmation # [id number] Dictation # [id number] bridgette
--- NOTE | 2016-11-28 12:04 | PCM.PYCHPN ---
Psychiatric Progress Note - Psychiatric Progress Note Patient seen today, length of contact: Chart reviewed, case discussed with team , patient evaluated, 35 min Patient Chief Complaint: "I'm okay." Problems Identified/Issues Discussed: Patient continues to report feelings of depressive symptoms with poor sleep and appetite. EKG was normal. We reviewed the risks/benefits of his current medications, as well as starting Trazodone PRN for sleep. We discussed CBT and how his thoughts affects his feelings/actions. Supportive therapy provided. He denies current side effects to medications. No symptoms of ETOH withdrawal. NO AH/VH/SI/HI Medication Change: No Medical Record Reviewed: Yes Mental Status Examination - Cognitive Function Orientation: Person, Place, Situation, Time Memory: Intact Attention: WNL Concentration: WNL Association: WNL Fund of Knowledge: [facility] Decription of patient's judgement and insights: Fair I/J - Mood Mood: Depressed, Anxious - Affect Affect: Constricted, Depressed - Speech Speech: Appropriate - Formal Thought Process Formal Thought Process: No Impairment Psychotic Thoughts and Behaviors: NO AH/VH/paranoia/delusions - Suicidal Ideation Suicidal Ideation: No - Homicidal Ideation Homicidal Ideation: No Goal/Treatment Plan - Goal/Treatment Plan Need for Continued Stay: Remain at risks for inpatient hospitalization, Severe depression anxiety Progress Toward Problem(s) and Goals/Treatment Plan: 41 yo male w/ Major Depressive Disorder and Alcohol use disorder, presents with severe depressive symptoms, anxiety, poor self care, anhedonia, weight loss / change in appetite. Patient needs acute inpatient psychiatric hospitalization for treatment and stabilization. Plan: -Continue Zoloft 100 mg PO Daily -Start Trazodone 50 mg PO PRN insomnia -Individual, group and milieu tx -Medicine consult appreciated -EKG normal Estimated Date of D/C: 12/03/16 - Smoking Cessation Smoking Cessation Initiated: No Reason for not providing: Not indicated
--- NOTE | 2016-11-29 12:11 | PCM.PYCHPN ---
Psychiatric Progress Note - Psychiatric Progress Note Patient seen today, length of contact: Chart reviewed, case discussed with team , patient evaluated, 35 min Patient Chief Complaint: "I'm okay." Problems Identified/Issues Discussed: Patient continues to report feelings of depression and anxiety, but states that his symptoms are starting to improve. We discussed CBT, cognitive distortions and the effect that thoughts have on feelings/behaviors. He denies current side effects to medications. No symptoms of ETOH withdrawal. NO AH/VH/SI/HI Medication Change: No Medical Record Reviewed: Yes Mental Status Examination - Cognitive Function Orientation: Person, Place, Situation, Time Memory: Intact Attention: WNL Concentration: WNL Association: WN Fund of Knowledge: [facility] Decription of patient's judgement and insights: Good I/J - Mood Mood: Depressed, Anxious - Affect Affect: Constricted, Depressed - Speech Speech: Appropriate - Formal Thought Process Formal Thought Process: No Impairment Psychotic Thoughts and Behaviors: NO AH/VH/paranoia - Suicidal Ideation Suicidal Ideation: No - Homicidal Ideation Homicidal Ideation: No Goal/Treatment Plan - Goal/Treatment Plan Need for Continued Stay: Remain at risks for inpatient hospitalization, Severe depression anxiety Progress Toward Problem(s) and Goals/Treatment Plan: 41 yo male w/ Major Depressive Disorder and Alcohol use disorder, presents with severe depressive symptoms, anxiety, poor self care, anhedonia, weight loss / change in appetite. Patient needs acute inpatient psychiatric hospitalization for treatment and stabilization. Plan: -Zoloft 100 mg PO Daily -Trazodone 50 mg PO PRN insomnia -Individual, group and milieu tx -Medicine consult appreciated -EKG normal Estimated Date of D/C: 12/03/16
--- NOTE | 2016-11-30 08:22 | CP.PCM.PN ---
Subjective - Date & Time of Evaluation Date of Evaluation: 11/30/16 Time of Evaluation: 08:17 - Subjective Subjective: Pt is feeling a little better but the INR is still a little over the thrtapeutic value. He is now on 5 mg of the coumadin, and INR is 3,5. Both lower extremities are less swollen. Will continue coumadin Objective - Vital Signs/Intake and Output Vital Signs (last 24 hours): Temp Pulse Resp BP Pulse Ox 97.5 F L 63 18 124/73 96 11/30/16 06:00 11/30/16 06:00 11/30/16 06:00 11/30/16 06:00 11/23/16 15:07 - Medications Medications: Current Medications Acetaminophen (Tylenol 325mg Tab) 650 mg PO Q4 PRN PRN Reason: Pain, moderate (4-7) Al Hydrox/Mg Hydrox/Simethicone (Maalox Plus 30 Ml) 30 ml PO Q4 PRN PRN Reason: Dyspepsia Bismuth Subsalicylate (Pepto-Bismol) 524 mg PO Q4 PRN PRN Reason: Diarrhea Folic Acid (Folic Acid) 1 mg PO DAILY [facility] Last Admin: 11/29/16 10:06 Dose: 1 mg Lorazepam (Ativan) 1 mg PO HS PRN PRN Reason: for insomnia Last Admin: 11/28/16 22:12 Dose: 1 mg Magnesium Hydroxide (Milk Of Magnesia) 30 ml PO HS PRN PRN Reason: Constipation Methadone HCl (Methadone) 160 mg PO DAILY [facility] Last Admin: 11/29/16 10:07 Dose: 160 mg Sertraline HCl (Zoloft) 100 mg PO DAILY [facility] Last Admin: 11/29/16 10:06 Dose: 100 mg Trazodone HCl (Desyrel) 50 mg PO HS [facility] Last Admin: 11/29/16 21:25 Dose: 50 mg - Labs Labs: 11/28/16 06:58 11/28/16 06:58 PT 36.6 SECONDS (9.6-11.2) H* 11/29/16 10:55 INR 3.52 (0.92-1.08) H 11/29/16 10:55
--- NOTE | 2016-11-30 08:42 | PN ---
DATE: 11/29/2016 The patient seen and examined. Interim events noted. Consults noted and appreciated. Psychiatry an d hematology/oncology consult and intervention noted and appreciated. The patient remains in geropsy ch unit. The patient feels okay. No specific complaint of chest pain or shortness of breath. PHYSICAL EXAMINATION: GENERAL: The patient is in no acute distress. VITAL SIGNS: Stable. HEART: S1, S2 normal, regular. LUNGS: Good bilateral air entry. ABDOMEN: Soft, nontender. EXTREMITIES: No edema, no calf swelling, no tenderness, no acute ischemia. CENTRAL NERVOUS SYSTEM: Essentially unchanged. DIAGNOSTIC DATA: Available diagnostic data reviewed. Overall, patient's general medical condition is stable and improving. PLAN: As ordered. Fish Suggs MD cc: [phone] TT: 11/29/2016 14:46:29 Confirmation # [id number] Dictation # [id number] an
--- NOTE | 2016-11-30 08:48 | PN ---
DATE: 11/30/2016 The patient seen and examined. Interim events noted. The patient feels okay. No specific medical c omplaints. PHYSICAL EXAMINATION: GENERAL: The patient is in no acute distress. VITAL SIGNS: Stable. Physical exam is essentially unchanged. DIAGNOSTIC DATA: Available diagnostic data reviewed. INR is 3.56. Hemoglobin is a bit low also. Overall, patient is clinical stable. PLAN: As ordered. Fish Suggs MD cc: [id number] TT: 11/30/2016 08:47:32 Confirmation # [id number] Dictation # [id number] mn
--- NOTE | 2016-11-30 18:20 | PCM.PYCHPN ---
Psychiatric Progress Note - Psychiatric Progress Note Patient seen today, length of contact: Chart reviewed, case discussed with team , patient evaluated Patient Chief Complaint: reports anxiety increased today ? secondary to increased nerve pain in legs, reports neuropathy is increased with changes in weather. denies notable side effects with medication, denies notable bleeding, bruising or bleeding when cleansing after bm. 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 Medical Problems: multiple per chart Diagnostic Results: per psychiatry per medicine per nursing per social work per recreational therapy per dietary/nutrition DSM 5 Symptoms Update: alteration in mood Medication Change: Yes (lorazepam 0.5mt po x 1 dose ) Medical Record Reviewed: Yes Mental Status Examination - Cognitive Function Orientation: Person, Place, Situation, Time Memory: Intact Attention: WNL Concentration: WNL Association: [facility] Fund of Knowledge: [facility] Decription of patient's judgement and insights: impaired - Mood Mood: Depressed, Anxious - Affect Affect: Constricted, Depressed - Speech Speech: Appropriate - Formal Thought Process Formal Thought Process: No Impairment - Suicidal Ideation Suicidal Ideation: No - Homicidal Ideation Homicidal Ideation: No Goal/Treatment Plan - Goal/Treatment Plan Need for Continued Stay: Remain at risks for inpatient hospitalization, Severe depression anxiety Progress Toward Problem(s) and Goals/Treatment Plan: inpt milieu vital signs and assessment per protocol and per status q 15 min observation and per clinical status, pt is in room near nursing station administration for a minimum of 2 q 15 min and the obtainment of b/p more than 90/60 and respiratory rate of 12 bpm or higher. falls precautions/bleeding precautions staff to encourage pt oob of bed prn and or change of position to decrease likelihood of thrombi/pneumonia/ulcers-wounds discharge planning in progress Estimated Date of D/C: 12/03/16 - Smoking Cessation Smoking Cessation Initiated: No Reason for not providing: pt defers
--- NOTE | 2016-12-01 08:42 | PN ---
DATE: 12/01/2016 The patient seen and examined. Interim events noted. The patient remains in geropsych unit. The pa tient no specific medical complaints. PHYSICAL EXAMINATION: GENERAL: The patient is in no acute distress. VITAL SIGNS: Stable. Physical exam is essentially unchanged. DIAGNOSTIC DATA: Available diagnostic data reviewed. INR is therapeutic at 3.15. IMPRESSION: Overall, the patient is clinically stable. PLAN: As ordered. Fish Suggs MD cc: [id number] TT: 12/01/2016 08:41:50 Confirmation # [id number] Dictation # [id number] mn
--- NOTE | 2016-12-01 12:39 | PCM.PYCHPN ---
Psychiatric Progress Note - Psychiatric Progress Note Patient seen today, length of contact: Chart reviewed, case discussed with team , patient evaluated Patient Chief Complaint: pt is still n=very anxious stemming from pain. Problems Identified/Issues Discussed: pt was admitted for depression and anxiety DSM 5 Symptoms Update: major depression Medication Change: Yes (lorazepam 0.5mt po x 1 dose ) Medical Record Reviewed: Yes Mental Status Examination - Cognitive Function Orientation: Person, Place, Situation, Time Memory: Intact Attention: WNL Concentration: WNL Association: WNL Fund of Knowledge: WNL - Mood Mood: Depressed, Anxious - Affect Affect: Constricted, Depressed - Speech Speech: Appropriate - Formal Thought Process Formal Thought Process: No Impairment - Suicidal Ideation Suicidal Ideation: No - Homicidal Ideation Homicidal Ideation: No Goal/Treatment Plan - Goal/Treatment Plan Need for Continued Stay: Remain at risks for inpatient hospitalization, Severe depression anxiety Progress Toward Problem(s) and Goals/Treatment Plan: will add prn meds ativan prn for anxiety. dorota continue to titrate zoloft and trazodone as needed to stabilize the pt Estimated Date of D/C: 12/03/16
--- NOTE | 2016-12-02 09:08 | PN ---
DATE: 12/02/2016 The patient seen and examined. Interim events noted. Consults noted, appreciated. Psychiatry follo wup and intervention noted and appreciated. The patient remains in geropsych unit. The patient feel s okay. No specific complaint. No chest pain or shortness of breath. PHYSICAL EXAMINATION: GENERAL: The patient is in no acute distress. VITAL SIGNS: Stable. Physical exam is essentially unchanged. DIAGNOSTIC DATA: Available reviewed. Overall, patient's general medical condition is stable. PLAN: As ordered. INR level is 3.97. Fish Suggs MD cc: [id number] TT: 12/02/2016 09:08:17 Confirmation # [id number] Dictation # [id number] en
--- NOTE | 2016-12-02 14:37 | PCM.PYCHPN ---
Psychiatric Progress Note - Psychiatric Progress Note Patient seen today, length of contact: Chart reviewed, case discussed with team , patient evaluated Patient Chief Complaint: pt is still very anxious stemming from pain. Problems Identified/Issues Discussed: pt was admitted for depression and anxiety Medication Change: Yes (lorazepam 0.5mt po x 1 dose ) Medical Record Reviewed: Yes Mental Status Examination - Cognitive Function Orientation: Person, Place, Situation, Time Memory: Intact Attention: WNL Concentration: WNL Association: WNL Fund of Knowledge: WNL - Mood Mood: Depressed, Anxious - Affect Affect: Constricted, Depressed - Speech Speech: Appropriate - Formal Thought Process Formal Thought Process: No Impairment - Suicidal Ideation Suicidal Ideation: No - Homicidal Ideation Homicidal Ideation: No Goal/Treatment Plan - Goal/Treatment Plan Need for Continued Stay: Remain at risks for inpatient hospitalization, Severe depression anxiety Progress Toward Problem(s) and Goals/Treatment Plan: will add prn meds ativan prn for anxiety. dorota continue to titrate zoloft and trazodone as needed to stabilize the pt Estimated Date of D/C: 12/03/16
--- NOTE | 2016-12-03 07:58 | PN ---
DATE: 12/03/2016 The patient seen and examined. Interim events noted. Consults noted, appreciated. Psychiatry follo errol and interventions noted and appreciated. The patient remains in geropsych unit. Complains of an xiety, but no chest pain, no shortness of breath. PHYSICAL EXAMINATION: GENERAL: The patient is in no acute distress. VITAL SIGNS: Stable. Physical exam is essentially unchanged. DIAGNOSTIC DATA: Available reviewed. INR is 2.87 and is therapeutic. Overall, patient's general medical condition is stable. PLAN: As ordered. Fish Suggs MD cc: [phone] TT: 12/03/2016 07:57:31 Confirmation # [id number] Dictation # [id number] en
--- NOTE | 2016-12-03 10:45 | CP.PCM.PN ---
Subjective - Date & Time of Evaluation Date of Evaluation: 12/03/16 Time of Evaluation: 10:39 - Subjective Subjective: Pt is feeling better, some swelling in the lower extremity still persists, but is better. His coumadin has been in the therapeutic range for some time. He may begin physical therapy now. Objective - Vital Signs/Intake and Output Vital Signs (last 24 hours): Temp Pulse Resp BP Pulse Ox 98.1 F 69 18 119/75 96 12/03/16 05:27 12/03/16 05:27 12/03/16 05:27 12/03/16 05:27 11/23/16 15:07 - Medications Medications: Current Medications Acetaminophen (Tylenol 325mg Tab) 650 mg PO Q4 PRN PRN Reason: Pain, moderate (4-7) Last Admin: 12/03/16 10:06 Dose: 650 mg Al Hydrox/Mg Hydrox/Simethicone (Maalox Plus 30 Ml) 30 ml PO Q4 PRN PRN Reason: Dyspepsia Bismuth Subsalicylate (Pepto-Bismol) 524 mg PO Q4 PRN PRN Reason: Diarrhea Folic Acid (Folic Acid) 1 mg PO DAILY [facility] Last Admin: 12/03/16 09:07 Dose: 1 mg Lorazepam (Ativan) 1 mg PO HS PRN PRN Reason: for insomnia Last Admin: 11/28/16 22:12 Dose: 1 mg Lorazepam (Ativan) 0.5 mg PO TID PRN PRN Reason: Anxiety Last Admin: 12/02/16 17:01 Dose: 0.5 mg Magnesium Hydroxide (Milk Of Magnesia) 30 ml PO HS PRN PRN Reason: Constipation Methadone HCl (Methadone) 160 mg PO DAILY [facility] Last Admin: 12/03/16 09:07 Dose: 160 mg Sertraline HCl (Zoloft) 100 mg PO DAILY [facility] Last Admin: 12/03/16 09:07 Dose: 100 mg Trazodone HCl (Desyrel) 50 mg PO HS [facility] Last Admin: 12/02/16 21:08 Dose: 50 mg Warfarin Sodium (Coumadin) 5 mg PO ONCE ONE PRN Reason: Protocol Stop: 12/03/16 17:01 - Labs Labs: 11/28/16 06:58 11/28/16 06:58 PT 29.1 SECONDS (9.6-11.2) H 12/03/16 08:40 INR 2.80 (0.92-1.08) H 12/03/16 08:40
--- NOTE | 2016-12-03 18:04 | PCM.PYCHPN ---
Psychiatric Progress Note - Psychiatric Progress Note Patient seen today, length of contact: Chart reviewed, case discussed with team , patient evaluated Patient Chief Complaint: reports anxiety increased today ? secondary to increased nerve pain in legs, reports neuropathy is increased with changes in weather. denies notable side effects with medication, denies notable bleeding, bruising or bleeding when cleansing after bm. 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 Medical Problems: multiple per chart Diagnostic Results: per psychiatry per medicine per nursing per social work per recreational therapy per dietary/nutrition DSM 5 Symptoms Update: alteration in mood alteration in self view alteration in self care chronic pain alteration hemotologic status-receiving coumadin Medication Change: No Medical Record Reviewed: Yes Consults ordered or reviewed: seen by dr lovely monroe Mental Status Examination - Cognitive Function Orientation: Person, Place, Situation, Time Memory: Intact Attention: WNL Concentration: WNL Association: WNL Fund of Knowledge: WN Decription of patient's judgement and insights: impaired - Mood Mood: Depressed, Anxious - Affect Affect: Constricted, Depressed - Speech Speech: Appropriate - Formal Thought Process Formal Thought Process: No Impairment - Suicidal Ideation Suicidal Ideation: No - Homicidal Ideation Homicidal Ideation: No Goal/Treatment Plan - Goal/Treatment Plan Need for Continued Stay: Remain at risks for inpatient hospitalization, Severe depression anxiety Progress Toward Problem(s) and Goals/Treatment Plan: inpt milieu vital signs and assessment per protocol and per status q 15 min observation and per clinical status falls precautions/bleeding precautions staff to encourage pt oob of bed prn and or change of position to decrease likelihood of thrombi/pneumonia/ulcers-wounds discharge planning in progress Estimated Date of D/C: 12/03/16 - Smoking Cessation Smoking Cessation Initiated: No Reason for not providing: deferred
--- NOTE | 2016-12-04 09:29 | PN ---
DATE: 12/04/2016 The patient is seen and examined. Interim events noted. Consults noted, appreciated. Psychiatry, h ematology interventions noted and appreciated. The patient remains in the general psych unit. specific medical complaints. PHYSICAL EXAMINATION: GENERAL: The patient is in no acute distress. VITAL SIGNS: Stable. Physical exam is essentially unchanged. DIAGNOSTIC DATA: Available diagnostic data reviewed. INR is . Overall, patient's general medical condition is stable. PLAN: As ordered. Fish Suggs MD cc: [id number] TT: 12/04/2016 09:28:43 Confirmation # [id number] Dictation # [id number] mn
--- NOTE | 2016-12-04 16:32 | PCM.PYCHPN ---
Psychiatric Progress Note - Psychiatric Progress Note Patient seen today, length of contact: Chart reviewed, case discussed with team , patient evaluated Patient Chief Complaint: pt reports feeling less anxious, pain is stable with methadone, staff report pt is adherent with medications and treatment, is seen about in unit in wheelchair. pt is agreeable to transition to sub acute care. denies side effects medications. Problems Identified/Issues Discussed: mood is stabilizing, depression is improving, denies suicidal ideations. Medical Problems: multiple per chart Diagnostic Results: per psychiatry per medicine per nursing per social work per recreational therapy per dietary/nutrition DSM 5 Symptoms Update: alteration in mood: mood and pain stabilizing alteration in self care Medication Change: No Medical Record Reviewed: Yes Mental Status Examination - Cognitive Function Orientation: Person, Place, Situation, Time Memory: Intact Attention: WNL Concentration: WNL Association: WNL Fund of Knowledge: WN Decription of patient's judgement and insights: impaired - Mood Mood: Depressed, Anxious - Affect Affect: Constricted, Depressed - Speech Speech: Appropriate - Formal Thought Process Formal Thought Process: No Impairment - Suicidal Ideation Suicidal Ideation: No - Homicidal Ideation Homicidal Ideation: No Goal/Treatment Plan - Goal/Treatment Plan Need for Continued Stay: Remain at risks for inpatient hospitalization, Severe depression anxiety Progress Toward Problem(s) and Goals/Treatment Plan: inpt milieu vital signs and assessment per protocol and per status q 15 min observation and per clinical status falls precautions/bleeding precautions staff to encourage pt oob of bed prn and or change of position to decrease likelihood of thrombi/pneumonia/ulcers-wounds pt is psychiatrically stable for transition to sub acute rehab discharge planning in progress Estimated Date of D/C: 12/03/16 - Smoking Cessation Smoking Cessation Initiated: No Reason for not providing: deferred
[2016-12-05 05:41] VITALS: BP 115/63; PULSE 69; RESP 18; TEMP 97.1
--- NOTE | 2016-12-05 09:07 | PN ---
DATE: 12/05/2016 The patient seen and examined. Interim events noted. Consults noted, appreciated. The patient joon ins in geropsych unit. Feels better, depression improving. No specific medical issues. PHYSICAL EXAMINATION: GENERAL: The patient is in no acute distress. VITAL SIGNS: Stable. Physical exam is essentially unchanged. DIAGNOSTIC DATA: Available reviewed. Overall, patient's general medical condition is stable. PLAN: As ordered. Fish Suggs MD cc: [id number] TT: 12/05/2016 09:06:43 Confirmation # [id number] Dictation # [id number]
== END 2016-12-05 13:07 | DRG 881 ==
LOC: H.STEP 22:40
PROVIDERS: ADMIT Psychiatry & Neurology Psychiatry; ATTEND Psychiatry & Neurology Psychiatry
PROC: GZHZZZZ Group Psychotherapy (ICD-10-PCS; principal; 2016-11-22)
PROC: GZ56ZZZ Individual Psychotherapy, Supportive (ICD-10-PCS; 2016-11-22)
DX: F32.9 Major depressive disorder, single episode, unspecified (principal); D68.59 Other primary thrombophilia; F11.20 Opioid dependence, uncomplicated; E66.01 Morbid (severe) obesity due to excess calories; K70.9 Alcoholic liver disease, unspecified; G62.9 Polyneuropathy, unspecified; F41.9 Anxiety disorder, unspecified; Z86.711 Personal history of pulmonary embolism; Z86.718 Personal history of other venous thrombosis and embolism; Z68.34 Body mass index [BMI] 34.0-34.9, adult; M19.90 Unspecified osteoarthritis, unspecified site; Z72.89 Other problems related to lifestyle

== ENCOUNTER 2018-04-04 06:15 | Emergency (ER) | payer MEDICARE ==
[2018-04-04 06:15] VITALS: BMI 34.4
[2018-04-04 08:03] LABS: BASO % 0.7 % (0.0-2.0); EOS # 0.1 K/uL (0.0-0.7); EOS % 1.7 % (0.0-4.0); HEMOGLOBIN 9.9 g/dL (12.0-18.0); LYMPH # 1.4 K/uL (1.0-4.3); LYMPH % 26.7 % (20.0-40.0); MEAN CELL VOLUME 77.8 fl (80.0-94.0); MEAN CORPUSCULAR HGB CONC 30.9 g/dL (33.0-37.0); MEAN PLATELET VOLUME 9.2 fl (7.2-11.7); MONO # 0.4 K/uL (0.0-0.8); MONO % 8.2 % (0.0-10.0); NEUT # 3.2 K/uL (1.8-7.0); NEUT % 62.7 % (50.0-75.0); RBC 4.1 Mil/uL (4.40-5.90); RED CELL DISTRIBUTION WIDTH 15.7 % (11.5-14.5); WHITE BLOOD COUNT 5.2 K/uL (4.8-10.8)
[2018-04-04 08:05] LABS: INR 2.2; PROTHROMBIN TIME 24.2 Seconds (9.8-13.1)
[2018-04-04 08:07] LABS: PARTIAL THROMBOPLASTIN TIME 34.7 Seconds (25.6-37.1)
[2018-04-04 08:08] LABS: ALB/GLOB RATIO 1.2 (1.0-2.1); ALBUMIN 3.8 g/dL (3.5-5.0); ALT/SGPT 33 U/L (21-72); AST/SGOT 22 U/L (17-59); BLOOD UREA NITROGEN 6 mg/dl (9-20); CALCIUM 8.4 mg/dL (8.4-10.2); GFR AFRICAN-AMERICAN > 60; GFR NON-AFRICAN AMERICAN > 60
--- NOTE | 2018-04-04 08:14 | ED PDOC ---
Lower Extremity Pain/Injury Time Seen by Provider: 04/04/18 06:54 Chief Complaint (Nursing): Lower Extremity Problem/Injury Chief Complaint (Provider): leg and dental pain History Per: Patient History/Exam Limitations: no limitations Onset/Duration Of Symptoms: Days (4), Gradual Current Symptoms Are (Timing): Still Present Severity: Moderate Additional History Per: Prior Records Additional Complaint(s): 42yo male on methadone 140mg daily, hx DVTs prior on anticoagulation stopped himself several weeks ago due to bleeding gums, c/o leg pains and subjective swelling to x4-5 days, concerned about another DVT. Also notes ongoing dental pains and dental decay he believes from methadone. Denies fever, dysphagia, oral swelling or neck pain. Past Medical History Reviewed: Historical Data, Nursing Documentation, Vital Signs Vital Signs: Last Vital Signs Temp 97.5 F L 04/04/18 06:33 Pulse 67 04/04/18 06:33 Resp 18 04/04/18 06:33 BP 149/86 04/04/18 06:33 Pulse Ox 100 04/04/18 06:33 - Medical History PMH: Depression, Deep Vein Thrombosis, Fractures, Pulmonary Embolism Denies: HIV, Chronic Kidney Disease - Surgical History Surgical History: Cholecystectomy - Family History Family History: States: Unknown Family Hx - Social History Current smoker - smoking cessation education provided: No Alcohol: None Drugs: Denies - Home Medications Home Medications: Ambulatory Orders Medication Instructions Recorded Folic Acid 1 mg PO DAILY tab 11/22/16 Folic Acid 1 mg PO DAILY tab 12/05/16 Methadone 160 mg PO DAILY tab 12/05/16 Sertraline [Zoloft] 100 mg PO DAILY tab 12/05/16 Warfarin [Coumadin] 5 mg PO QD5 tab 12/05/16 hydrOXYzine Pamoate [Vistaril] 25 mg PO BID PRN #0 cap 12/05/16 Apixaban [Eliquis] 2.5 mg PO BID #20 tab 04/04/18 - Allergies Allergies/Adverse Reactions: Allergies Allergy/AdvReac Type Severity Reaction Status Date / Time No Known Allergies Allergy Verified 05/16/15 18:35 Review of Systems Constitutional: Negative for: Fever ENT: Positive for: Other (dental pain). Negative for: Throat Pain Cardiovascular: Negative for: Chest Pain, Palpitations Gastrointestinal: Negative for: Abdominal Pain Genitourinary Male: Negative for: Dysuria Musculoskeletal: Positive for: Back Pain, Leg Pain, Foot Pain. Negative for: Neck Pain Skin: Negative for: Rash, Lesions Neurological: Negative for: Weakness, Numbness, Headache, Dizziness Psych: Negative for: Depression Physical Exam - Reviewed Nursing Documentation Reviewed: Yes Vital Signs Reviewed: Yes - Physical Exam Appears: Positive for: Well, Non-toxic, No Acute Distress Head Exam: Positive for: ATRAUMATIC, NORMAL INSPECTION, NORMOCEPHALIC Skin: Positive for: Normal Color, Warm, DRY Eye Exam: Positive for: EOMI, Normal appearance, PERRL ENT: Positive for: Other (poor dentition with dental decay diffusely, minimal gingival erythema no edema). Negative for: Tonsillar Exudate Neck: Positive for: Normal, Painless ROM Cardiovascular/Chest: Positive for: Regular Rate, Rhythm Respiratory: Positive for: CNT, Normal Breath Sounds Gastrointestinal/Abdominal: Positive for: Soft. Negative for: Tenderness Back: Positive for: Normal Inspection Extremity: Positive for: Normal ROM, Calf Tenderness (L>R), Swelling (mild b/l LE). Negative for: Deformity Neurologic/Psych: Positive for: Alert, Oriented. Negative for: Motor/Sensory Deficits - Laboratory Results Result Diagrams: 04/04/18 07:31 04/04/18 07:31 - ECG O2 Sat by Pulse Oximetry: 100 Medical Decision Making Medical Decision Making: workup for r/o DVT initiated check basic labs given c/o gingival bleeding although likely related to prior anticoagulation use labs reveal mod anemia similar to 2017 chem unremarkable Accession No. : [id number] Patient Name / ID : [id number] ROWLEY / [id number] Exam Date : 04/04/2018 08:27:06 ( Approved ) Study Comment : Sex / Age : M / 42Y Creator : Jeff Yoo MD Dictator : Jeff Yoo MD Customer Acquisition Manager : Torpedo Worker : Jeff Yoo MD Approver2 : Report Date : 04/04/2018 09:52:55 My Comment : Date of service: 04/04/2018 PROCEDURE: Bilateral lower extremity venous duplex Doppler. HISTORY: hx DVT off anticoag, now L>R leg pain swelling COMPARISON: None available. TECHNIQUE: Bilateral common femoral, superficial femoral, popliteal and posterior tibial veins were evaluated. Flow was assessed with color Doppler, compressibility, assessment of phasic flow and augmentation response. FINDINGS: COMMON FEMORAL VEIN: Right CFV: Unremarkable. Left CFV: Unremarkable. SUPERFICIAL FEMORAL VEIN: There is good spontaneous phasic color Doppler blood flow on the bilateral distal superficial femoral vein segments and no echogenic material is demonstrated utilizing grayscale sonography either. Due to body habitus, the technologist was unable to fully compress this segment of each distal SFV and we are unable to utilize the primary criteria for excluding deep venous thrombosis at the distal superficial femoral veins. All other parameters suggests no thrombosis. POPLITEAL VEIN: Right Popliteal: Unremarkable. Left Popliteal: Unremarkable. Incidental note is made of a large Escamilla's cyst measures 6.0 x 2.5 by 4.8 cm. POSTERIOR TIBIAL VEIN: Right PTV: Unremarkable. Left PTV: Not identified. OTHER FINDINGS: Occlusive thrombosis is seen at the left lesser saphenous vein below the left knee. IMPRESSION: No ultrasound evidence of deep venous thrombosis grossly. Limitations: Inability fully compressed distal bilateral superficial femoral veins although other parameters suggests no thrombosis at the segments. Evaluation at these segments is suboptimal. Occlusive superficial thrombosis of left lesser saphenous vein. Greater saphenous vein is widely patent left lower extremity. given hx and risk factors needs anticoagulation for now, restart preventative dose eliquis 2.5mg and followup outpatient , referred Dr Teresa correctional supervisor lieutenant as he states doesnt have PMD right now. Needs dental clinic also, given options for dental care in area, clinics, etc. Disposition - Clinical Impression Clinical Impression: Leg pain, History of DVT (deep vein thrombosis), Dental decay - Disposition Referrals: Gerardo Teresa MD [Staff Provider] - Condition: STABLE Additional Instructions: Start anticoagulation based on your history. See dentist to schedule dental work, you may need to briefly stop Eliquis before dental work performed. Return to ER for any worse or new symptoms. Prescriptions: Apixaban [Eliquis] 2.5 mg PO BID #20 tab Instructions: Tooth Decay, Adult, Deep Vein Thrombosis (Blood Clots in the Legs ), Muscle and Bone Pain (DC), How to Prevent Blood Clots Forms: [facility] (Lebanese)
--- NOTE | 2018-04-04 09:54 | US ---
Date of service: 04/04/2018 PROCEDURE: Bilateral lower extremity venous duplex Doppler. HISTORY: hx DVT off anticoag, now L>R leg pain swelling COMPARISON: None available. TECHNIQUE: Bilateral common femoral, superficial femoral, popliteal and posterior tibial veins were evaluated. Flow was assessed with color Doppler, compressibility, assessment of phasic flow and augmentation response. FINDINGS: COMMON FEMORAL VEIN: Right CFV: Unremarkable. Left CFV: Unremarkable. SUPERFICIAL FEMORAL VEIN: There is good spontaneous phasic color Doppler blood flow on the bilateral distal superficial femoral vein segments and no echogenic material is demonstrated utilizing grayscale sonography either. Due to body habitus, the technologist was unable to fully compress this segment of each distal SFV and we are unable to utilize the primary criteria for excluding deep venous thrombosis at the distal superficial femoral veins. All other parameters suggests no thrombosis. POPLITEAL VEIN: Right Popliteal: Unremarkable. Left Popliteal: Unremarkable. Incidental note is made of a large Escamilla's cyst measures 6.0 x 2.5 by 4.8 cm. POSTERIOR TIBIAL VEIN: Right PTV: Unremarkable. Left PTV: Not identified. OTHER FINDINGS: Occlusive thrombosis is seen at the left lesser saphenous vein below the left knee. IMPRESSION: No ultrasound evidence of deep venous thrombosis grossly. Limitations: Inability fully compressed distal bilateral superficial femoral veins although other parameters suggests no thrombosis at the segments. Evaluation at these segments is suboptimal. Occlusive superficial thrombosis of left lesser saphenous vein. Greater saphenous vein is widely patent left lower extremity.
[2018-04-04 11:51] VITALS: BP 144/82; PULSE 88; RESP 20; TEMP 97.8; O2SAT 97
== END 2018-04-04 11:40 | disposition home or self-care (01) ==
LOC: H.ER 06:15
DX: M79.605 Pain in left leg (principal); K02.9 Dental caries, unspecified; Z86.718 Personal history of other venous thrombosis and embolism; Z79.01 Long term (current) use of anticoagulants; Z86.711 Personal history of pulmonary embolism; F32.9 Major depressive disorder, single episode, unspecified

== ENCOUNTER 2018-12-03 06:26 | Inpatient (IN) | payer MEDICARE ==
[2018-12-03 06:44] VITALS: BMI 45.7
--- NOTE | 2018-12-03 08:32 | ED PDOC ---
HPI: SOB/CHF/COPD Time Seen by Provider: 12/03/18 07:12 Chief Complaint (Nursing): Respiratory Distress Chief Complaint (Provider): Respiratory Distress History Per: Patient History/Exam Limitations: no limitations Onset/Duration Of Symptoms: Days Associated Symptoms: Chest Pain, Leg/Calf Pain, Ankle/Leg Swelling Additional Complaint(s): 43 year old male with a past medical history of DVT, pulmonary embolism, and depression who is presenting to the ED for evaluation of shortness of breath associated with intermittent chest pain ongoing for the last couple of weeks. Patient also complains of leg pain and swelling and reports that he has a history of blood clots for which he was on Coumadin. He admits that he is not currently taking Coumadin but reports that he is on a methadone program where he takes 160 mg a day. Patient offers no other medical complaints at this time. PMD: none provided Past Medical History Reviewed: Historical Data, Nursing Documentation, Vital Signs Vital Signs: Last Vital Signs Temp 97.5 F L 12/03/18 06:44 Pulse 67 12/03/18 07:19 Resp 19 12/03/18 07:19 BP 137/81 12/03/18 07:19 Pulse Ox 100 12/03/18 07:19 - Medical History PMH: Depression, Deep Vein Thrombosis, Fractures, Pulmonary Embolism Denies: HIV, Chronic Kidney Disease Other PMH: on methadone ex drug/pill user - Surgical History Surgical History: Back Surgery, Cholecystectomy - Family History Family History: States: [place] (brother had a heart attack ) - Social History Current smoker - smoking cessation education provided: No Alcohol: Social Drugs: Other (methadone program ) - Home Medications Home Medications: Ambulatory Orders Medication Instructions Recorded Methadone 160 mg PO DAILY 12/03/18 Cyanocobalamin [Vitamin B12 1000 1,000 mcg SC DAILY vial 12/05/18 mcg/ml Inj] DULoxetine [Cymbalta] 30 mg PO BID #60 ecc 12/05/18 Ergocalciferol [Drisdol 50,000 1 cap PO Q7D #30 cap 12/05/18 Intl Units Cap] - Allergies Allergies/Adverse Reactions: Allergies Allergy/AdvReac Type Severity Reaction Status Date / Time No Known Allergies Allergy Verified 12/03/18 06:44 Review of Systems ROS Statement: Except As Marked, All Systems Reviewed And Found Negative Cardiovascular: Positive for: Chest Pain Respiratory: Positive for: Shortness of Breath Musculoskeletal: Positive for: Leg Pain (and swelling ) Physical Exam - Reviewed Nursing Documentation Reviewed: Yes Vital Signs Reviewed: Yes - Physical Exam Appears: Positive for: Non-toxic, No Acute Distress (obese) Head Exam: Positive for: ATRAUMATIC, NORMAL INSPECTION, NORMOCEPHALIC Skin: Positive for: Normal Color, Warm, DRY Eye Exam: Positive for: EOMI, Normal appearance, PERRL ENT: Positive for: Normal ENT Inspection Neck: Positive for: Normal Cardiovascular/Chest: Positive for: Regular Rate, Rhythm. Negative for: Murmur Respiratory: Positive for: Normal Breath Sounds. Negative for: Wheezing Gastrointestinal/Abdominal: Positive for: Normal Exam, Soft. Negative for: Tenderness Back: Positive for: Normal Inspection. Negative for: L CVA Tenderness, R CVA Tenderness Extremity: Positive for: Swelling (bilateral leg swelling with tenderness ), Other (Right leg: more swollen than left with anterior skin: erythema and warmth - consistent with cellulitis) Neurological/Psych: Positive for: Awake, Alert, Normal Tone, Oriented. Negative for: Motor/Sensory Deficits - Laboratory Results Result Diagrams: 12/09/18 17:30 12/09/18 15:22 - ECG O2 Sat by Pulse Oximetry: 100 (RA) Pulse Ox Interpretation: Normal Medical Decision Making Medical Decision Making: Time: 8:17 Plan: --EKG --BNP --CMP --Troponin --CBC --Coags --Blood Culture Chest x-ray: FINDINGS: LUNGS: Current inspiration greater than before. Prominent mammilation to the right hemidiaphragm. No consolidation seen. PLEURA: No significant pleural effusion identified. No pneumothorax apparent. CARDIOVASCULAR: No aortic atherosclerotic calcification present. Normal cardiac size. No pulmonary vascular congestion. OSSEOUS STRUCTURES: Thoracic spondylosis. Apparent VISUALIZED UPPER ABDOMEN: A neurostimulator device projects over the inferior thoracic spine. OTHER FINDINGS: None. IMPRESSION: No acute cardiopulmonary pathology noted. Chest CT: FINDINGS: PULMONARY ARTERIES: Unremarkable. No pulmonary embolism. AORTA: No acute findings. No thoracic aortic aneurysm. No aortic atherosclerotic calcification or mural plaque present. LUNGS: Unremarkable. No nodule, mass or pulmonary consolidation. PLEURAL SPACES: Unremarkable. No effusion or pneumothorax. HEART: Unremarkable. No cardiomegaly. No significant pericardial effusion. LYMPH NODES: No lymphadenopathy. BONES, CHEST WALL: Unremarkable. No fracture or destructive lesion OTHER FINDINGS: A sub cm low-density benign-appearing left adrenal nodule is noted and similar in appearance Postsurgical changes compatible with gastric bypass surgery are renoted. IMPRESSION: Unremarkable CT pulmonary angiogram. No pulmonary embolus. Other findings as above. .......... Pt will be admitted for Cellulitis lower extremity. and respiratory distress/fluid overload, therefore pt will need to be admitted to telemetry. pt agreeable to plan. Scribe Attestation: Documented by Sandra Dias, acting as a scribe for Spring Mcdaniels MD. Provider Scribe Attestation: All medical record entries made by the Scribe were at my direction and personally dictated by me. I have reviewed the chart and agree that the record accurately reflects my personal performance of the history, physical exam, medical decision making, and the department course for this patient. I have also personally directed, reviewed, and agree with the discharge instructions and disposition. Disposition - Clinical Impression Clinical Impression: Respiratory complication, Moderate COPD (chronic obstructive pulmonary disease), Cellulitis - Patient ED Disposition Is Patient to be Admitted: Yes Counseled Patient/Family Regarding: Studies Performed, Diagnosis - Disposition Disposition Time: 10:00 Condition: STABLE
[2018-12-03 08:52] LABS: BASO % 0.8 % (0.0-2.0); EOS # 0.1 K/uL (0.0-0.7); EOS % 1.3 % (0.0-4.0); HEMOGLOBIN 9.9 g/dL (12.0-18.0); LYMPH # 1.4 K/uL (1.0-4.3); LYMPH % 24.2 % (20.0-40.0); MEAN CELL VOLUME 76.1 fl (80.0-94.0); MEAN CORPUSCULAR HEMOGLOBIN 23.5 pg (27.0-31.0); MEAN CORPUSCULAR HGB CONC 30.8 g/dL (33.0-37.0); MONO # 0.4 K/uL (0.0-0.8); MONO % 6.2 % (0.0-10.0); NEUT # 3.9 K/uL (1.8-7.0); NEUT % 67.5 % (50.0-75.0); RBC 4.22 Mil/uL (4.40-5.90); RED CELL DISTRIBUTION WIDTH 16.6 % (11.5-14.5); WHITE BLOOD COUNT 5.8 K/uL (4.8-10.8)
[2018-12-03 09:02] LABS: ALBUMIN 3.5 g/dL (3.5-5.0); ALT/SGPT 16 U/L (21-72); AST/SGOT 19 U/L (17-59); BLOOD UREA NITROGEN 6 mg/dl (9-20); CALCIUM 8.2 mg/dL (8.4-10.2); GFR NON-AFRICAN AMERICAN > 60
[2018-12-03 09:14] LABS: INR 1.1; PROTHROMBIN TIME 12.1 Seconds (9.8-13.1)
[2018-12-03 09:26] LABS: B-TYPE NATRIURETIC PEPTIDE 156 pg/ml (0-450)
--- NOTE | 2018-12-03 09:53 | RAD ---
Date of service: 12/03/2018 HISTORY: sob COMPARISON: 06/27/2015 TECHNIQUE: Chest PA and lateral views FINDINGS: LUNGS: Current inspiration greater than before. Prominent mammilation to the right hemidiaphragm. No consolidation seen. PLEURA: No significant pleural effusion identified. No pneumothorax apparent. CARDIOVASCULAR: No aortic atherosclerotic calcification present. Normal cardiac size. No pulmonary vascular congestion. OSSEOUS STRUCTURES: Thoracic spondylosis. Apparent VISUALIZED UPPER ABDOMEN: A neurostimulator device projects over the inferior thoracic spine. OTHER FINDINGS: None. IMPRESSION: No acute cardiopulmonary pathology noted.
[2018-12-03] MEDS ORDERED: Sodium Chloride 0.9% 50 ML IV ONE (11:14)
[2018-12-03] MEDS ORDERED: Iodixanol 320 MG/ML 100 ML BOTTLE IV ONE (11:14)
--- NOTE | 2018-12-03 11:57 | CT ---
Date of service: 12/03/2018 PROCEDURE: CT Chest with contrast (Pulmonary Angiogram) HISTORY: sob, history of dvt COMPARISON: 11/22/2016 CT chest abdomen and pelvis. 06/27/2015 CT abdomen and pelvis TECHNIQUE: Axial computed tomography images were obtained of the chest in the pulmonary arterial phase of enhancement. Coronal and sagittal reformatted images were created and reviewed. Intravenous contrast dose: 90 cc Omnipaque 320 Radiation dose: Total exam DLP = 414.77 mGy-cm. This CT exam was performed using one or more of the following dose reduction techniques: Automated exposure control, adjustment of the mA and/or kV according to patient size, and/or use of iterative reconstruction technique. FINDINGS: PULMONARY ARTERIES: Unremarkable. No pulmonary embolism. AORTA: No acute findings. No thoracic aortic aneurysm. No aortic atherosclerotic calcification or mural plaque present. LUNGS: Unremarkable. No nodule, mass or pulmonary consolidation. PLEURAL SPACES: Unremarkable. No effusion or pneumothorax. HEART: Unremarkable. No cardiomegaly. No significant pericardial effusion. LYMPH NODES: No lymphadenopathy. BONES, CHEST WALL: Unremarkable. No fracture or destructive lesion OTHER FINDINGS: A sub cm low-density benign-appearing left adrenal nodule is noted and similar in appearance Postsurgical changes compatible with gastric bypass surgery are renoted. IMPRESSION: Unremarkable CT pulmonary angiogram. No pulmonary embolus. Other findings as above.
--- NOTE | 2018-12-03 12:40 | US ---
Date of service: 12/03/2018 PROCEDURE: Bilateral lower extremity venous duplex Doppler. HISTORY: bilateral LE swelling, right greater than left COMPARISON: 04/04/2018 TECHNIQUE: Bilateral common femoral, superficial femoral, popliteal and posterior tibial veins were evaluated. Flow was assessed with color Doppler, compressibility, assessment of phasic flow and augmentation response. FINDINGS: COMMON FEMORAL VEIN: Right CFV: Unremarkable. Left CFV: Unremarkable. SUPERFICIAL FEMORAL VEIN: Right SFV: Unremarkable. Left SFV: Unremarkable. POPLITEAL VEIN: Right Popliteal: Unremarkable. Left Popliteal: Unremarkable. POSTERIOR TIBIAL VEIN: Right PTV: Unremarkable. Left PTV: Unremarkable. OTHER FINDINGS: As before a left popliteal cyst is present. On this exam this measures 6.3 x 4.4 x 2.9 cm. This appears similar per images. IMPRESSION: No definitive evidence of deep venous thrombosis.. Similar-appearing left popliteal cyst/Escamilla cyst. Again please note: The exam is limited. There is some limitation in the compressibility-due to the patient's large body habitus. This was the same limitation/scenario at the time of the prior exam dated 04/04/2018 04/04/2018.
[2018-12-03] MEDS ORDERED: ceFAZolin 1 GM in Sodium Chloride 0.9% 100 ML IVPB ONE (14:15)
--- NOTE | 2018-12-03 18:44 | CP.PCM.CON ---
History of Present Illness - History of Present Illness History of Present Illness: 43 year old male with chief complaint of shortness of breath on exertion for several weeks. Pt admits to increased BLEE and fatigue. He denies cp, palp, lh, dizziness, syncope. Pt has a hx of recurrent DVTs and PE's. He had IVCF pl aced over 15 years ago and did have PE many years after. pt was treated with warfarin and then switched to eliquis, however about 3 months ago the pt discontinued the eliquis. he states his gums were bleeding and his teeth have been falling out, so he d/c the anticoagulation. CTA and LE doppler performed and negative. Pt denies ongoing drug use. pt states he cannot afford a dentist EKG SHOW SR, NML AXIS, EARLY R WAVE PROGRESSION WITH POSSIBLE SEPTAL HYPERTROPHY, DIFFUSE NONSPEC T WAVE FLATTENING. NO RECENT ECHO Review of Systems - Constitutional Constitutional: As Per HPI, Fatigue. absent: Anorexia, Chills, Daytime Sleepiness, Excessive Sweating, Fever, Frequent Falls, Headache, Increased Appetite, Lethargy, Malaise, Night Sweats, Snoring, Sleep Apnea, Weight Gain, Weight Loss, Weakness, Other - EENT Eyes: As Per HPI. absent: Blind Spots, Blurred Vision, Change in Vision, Decreased Night Vision, Diplopia, Discharge, Dry Eye, Exophthalmos, Floaters, Irritation, Itchy Eyes, Loss of Peripheral Vision, Pain, Photophobia, Requires Corrective Lenses, Sees Flashes, Spots in Vision, Tunnel Vision, Other Visual Disturbances, Loss of Vision, Other Ears: As Per HPI. absent: Decreased Hearing, Ear Discharge, Ear Pain, Tinnitus, Abnormal Hearing, Disequilibrium, Dizziness, Other Nose/Mouth/Throat: As Per HPI, Bleeding Gums. absent: Epistaxis, Nasal Congestion, Nasal Discharge, Nasal Obstruction, Nasal Trauma, Nose Pain, Post Nasal Drip, Sinus Pain, Sinus Pressure, Change in Voice, Dental Pain, Dry Mouth, Dysphagia, Halitosis, Hoarsness, Lip Swelling, Mouth Lesions, Mouth Pain, Odynophagia, Sore Throat, Throat Swelling, Tongue Swelling, Facial Pain, Neck Pain, Neck Mass, Other - Cardiovascular Cardiovascular: As Per HPI, Dyspnea, Dyspnea on Exertion, Edema, Leg Edema. absent: Acrocyanosis, Chest Pain, Chest Pain at Rest, Chest Pain with Activity, Claudication, Diaphoresis, Irregular Heart Rhythm, Pain Radiating to Arm/Neck/Jaw, Leg Ulcers, Lightheadedness, Orthopnea, Palpitations, Paroxysmal Nocturnal Dyspnea, Pedal Edema, Radiating Pain, Rapid Heart Rate, Slow Heart Rate, Syncope, Other - Respiratory Respiratory: As Per HPI. absent: Cough, Dyspnea, Hemoptysis, Dyspnea on Exertion, Wheezing, Snoring, Stridor, Pain on Inspiration, Chest Congestion, Excessive Mucous Production, Change in Mucous Color, Pain with Coughing, Other - Gastrointestinal Gastrointestinal: As Per HPI. absent: Abdominal Pain, Belching, Bloating, Change in Bowel Habits, Change in Stool Character, Coffee Ground Emesis, Constipation, Cramping, Diarrhea, Dyspepsia, Dysphagia, Early Satiety, Excessive Flatus, Fecal Incontinence, Heartburn, Hematemesis, Hematochezia, Loose Stools, Melena, Nausea, Odynophagia, Temesmus, Vomiting, Other - Genitourinary Genitourinary: As Per HPI. absent: Change in Urinary Stream, Difficulty Urinating, Dysuria, Flank Pain, Hematuria, Pyuria, Nocturia, Urinary Incontinence, Urinary Frequency, Urinary Hesitance, Urinary Urgency, Voiding Freq/Small Amts, Freq UTI, Hx Renal/Bladder Calculi, Hx /Renal Surgery, Bladder Distension, Other - Reproductive: Male Reproductive:Male: As Per HPI - Musculoskeletal Musculoskeletal: As Per HPI. absent: Abnormal Gait, Arthralgias, Atrophy, Back Pain, Deformity, Joint Swelling, Limited Range of Motion, Loss of Height, Muscle Cramps, Muscle Weakness, Myalgias, Neck Pain, Numbness, Radiating Pain into Limb, Stiffness, Tingling, Other - Integumentary Integumentary: As Per HPI. absent: Acne, Alopecia, Bleeding Lesions, Change in Hair, Change in Nails, Change in Pigmentation, Changing Lesions, Dry Skin, Erythema, Furuncle, Hirsutism, Lesions, New Lesions, Non-Healing Lesions, Photosensitivity, Pruritus, Rash, Skin Pain, Skin Ulcer, Sores, Striae, Swelling, Unusual Bruising, Wounds, Jaundice, Other - Neurological Neurological: As Per HPI. absent: Abnormal Gait, Abnormal Hearing, Abnormal Movements, Abnormal Speech, Behavioral Changes, Burning Sensations, Confusion, Convulsions, Disequilibrium, Dizziness, Numbness, Focal Weakness, Frequent Falls, Headaches, Lack of Coordination, Loss of Vision, Memory Loss, Paresthesias, Radicular Pain, Restless Legs, Sensory Deficit, Syncope, Tingling, Tremor, Vertigo, Weakness, Other Visual Disturbances, Other - Psychiatric Psychiatric: As Per HPI, Depression. absent: Abnormal Sleep Pattern, Anhedonia, Anxiety, Auditory Hallucinations, Behavioral Changes, Change in Appetite, Change in Libido, Confusion, Difficulty Concentrating, Hallucinations, Homicidal Ideation, Hopelessness, Irritability, Memory Loss, Mood Swings, Panic Attacks, Paranoia, Suicidal Ideation, Visual Hallucinations, Tactile Hallucinations, Other - Endocrine Endocrine: As Per HPI. absent: Change in Body Appearance, Change in Libido, Cold Intolorance, Deepening of Voice, Excessive Sweating, Fatigue, Flushing, Heat Intolorance, Increase in Ring/Shoe/Hat Size, Palpitations, Polydipsia, Polyphagia, Polyuria, Other - Hematologic/Lymphatic Hematologic: As Per HPI. absent: Easy Bleeding, Easy Bruising, Lymphadenopathy, Other Past Patient History - Infectious Disease Hx of Infectious Diseases: None - Tetanus Immunizations Tetanus Immunization: Unknown - Past Medical History & Family History Past Medical History?: Yes - Past Social History Smoking Status: Never Smoked Chewing Tobacco Use: No Cigar Use: No Alcohol: Social Drugs: Other (methadone program ) Home Situation {Lives}: With Family Domestic Violence: Negative - CARDIAC Hx Cardiac Disorders: Yes Hx Peripheral Edema: Yes - PULMONARY Hx Respiratory Disorders: Yes Hx Pulmonary Embolism: Yes - NEUROLOGICAL Hx Neurological Disorder: No - HEENT Hx HEENT Problems: No - RENAL Hx Chronic Kidney Disease: No - ENDOCRINE/METABOLIC Hx Endocrine Disorders: No - HEMATOLOGICAL/ONCOLOGICAL Hx Blood Disorders: No Hx Human Immunodeficiency Virus (HIV): No - INTEGUMENTARY Hx Dermatological Problems: No - MUSCULOSKELETAL/RHEUMATOLOGICAL Hx Musculoskeletal Disorders: Yes Hx Fractures: Yes - GASTROINTESTINAL Hx Gastrointestinal Disorders: No Other/Comment: Gastric Bypass with selve - GENITOURINARY/GYNECOLOGICAL Hx Genitourinary Disorders: No - PSYCHIATRIC Hx Psychophysiologic Disorder: Yes Hx Depression: Yes - SURGICAL HISTORY Hx Surgeries: Yes Hx Cholecystectomy: Yes - ANESTHESIA Hx Anesthesia: Yes Hx Anesthesia Reactions: No Hx Malignant Hyperthermia: No Meds Allergies/Adverse Reactions: Allergies Allergy/AdvReac Type Severity Reaction Status Date / Time No Known Allergies Allergy Verified 12/03/18 06:44 - Medications Medications: Current Medications Acetaminophen (Tylenol 325mg Tab) 650 mg PO Q4 PRN PRN Reason: pain 3-7 Cefazolin Sodium 1 gm/ Sodium (Chloride) 100 mls @ 100 mls/hr IVPB Q8 [facility]; Protocol Methadone HCl (Methadone) 160 mg PO DAILY [facility] Physical Exam - Constitutional Appears: No Acute Distress - Head Exam Head Exam: ATRAUMATIC, NORMAL INSPECTION, NORMOCEPHALIC - Eye Exam Eye Exam: EOMI, Normal appearance, PERRL. absent: Conjunctival injection, Nystagmus, Periorbital swelling, Periorbital tenderness, Scleral icterus Pupil Exam: NORMAL ACCOMODATION, PERRL. absent: Fixed, Irregular, Miosis, Mydriatic, Unequal - ENT Exam ENT Exam: Mucous Membranes Moist. absent: Mucous Membranes Dry, Normal Exam, Normal External Ear Exam, Normal Oropharynx, TM's Normal Bilaterally Additional comments: poor dentition - Neck Exam Neck exam: Positive for: Normal Inspection. Negative for: Full Rom, Lymphadenopathy, Meningismus, Tenderness, Thyromegaly - Respiratory Exam Respiratory Exam: Decreased Breath Sounds, NORMAL BREATHING PATTERN. absent: Accessory Muscle Use, Chest Wall Tenderness, Clear to Auscultation Bilateral, Prolonged Expiratory Phase, Rales, Rhonchi, Wheezes, Respiratory Distress, S tridor - Cardiovascular Exam Cardiovascular Exam: REGULAR RHYTHM, +S1, +S2, Systolic Murmur. absent: Bradycardia, Tachycardia, Clicks, Diastolic murmur, Gallop, Irregular Rhythm, JVD, RRR, Rubs, +S4 - GI/Abdominal Exam GI & Abdominal Exam: Normal Bowel Sounds, Soft. absent: Bruit, Diminished Bowel Sounds, Distended, Firm, Guarding, Hernia, Hyperactive Bowel Sounds, Hypoactive Bowel Sounds, Mass, Organomegaly, Pulsatile Mass, Rebound, Rigid, Tenderness - Rectal Exam Rectal Exam: Deferred - Extremities Exam Extremities exam: Positive for: full ROM, normal capillary refill, pedal edema, pedal pulses present. Negative for: calf tenderness, joint swelling, normal inspection, tenderness - Back Exam Back exam: NORMAL INSPECTION. absent: CVA tenderness (L), CVA tenderness (R), FULL ROM, muscle spasm, paraspinal tenderness, rash noted, tenderness, vertebral tenderness - Neurological Exam Neurological exam: Alert, CN II-XII Intact, Normal Gait, Oriented x3, Reflexes Normal - Psychiatric Exam Psychiatric exam: Normal Affect, Normal Mood - Skin Skin Exam: Dry, Intact, Normal Color, Warm Results - Vital Signs Recent Vital Signs: Last Vital Signs Temp 97.8 F 12/03/18 17:36 Pulse 79 12/03/18 17:36 Resp 20 12/03/18 17:36 BP 147/90 12/03/18 17:36 Pulse Ox 98 12/03/18 17:36 - Labs Result Diagrams: 12/03/18 08:43 12/03/18 08:43 Labs: Laboratory Results - last 24 hr 12/03/18 12/03/18 12/03/18 08:43 08:43 08:43 WBC 5.8 RBC 4.22 L Hgb 9.9 L Hct 32.1 L MCV 76.1 L MCH 23.5 L MCHC 30.8 L RDW 16.6 H Plt Count 197 MPV 8.0 Neut % (Auto) 67.5 Lymph % (Auto) 24.2 [place] % (Auto) 6.2 Eos % (Auto) 1.3 Baso % (Auto) 0.8 Neut # (Auto) 3.9 Lymph # (Auto) 1.4 [place] # (Auto) 0.4 Eos # (Auto) 0.1 Baso # (Auto) 0.0 PT 12.1 INR 1.1 Sodium 136 Potassium 4.0 Chloride 99 Carbon Dioxide 27 Anion Gap 14 BUN 6 L Creatinine 1.0 Est GFR ( Amer) > 60 Est GFR (Non-Af Amer) > 60 Random Glucose 84 Calcium 8.2 L Total Bilirubin 0.6 AST 19 ALT 16 L D Alkaline Phosphatase 71 Troponin I < 0.0120 NT-Pro-B Natriuret Pep 156 Total Protein 7.0 Albumin 3.5 Globulin 3.4 Albumin/Globulin Ratio 1.0 Assessment & Plan (1) Dyspnea on exertion Status: Acute (2) Fatigue Status: Acute (3) Edema Status: Acute (4) Presence of IVC filter Status: Acute (5) Hx of deep venous thrombosis Status: Acute (6) Hx pulmonary embolism Status: Acute (7) History of gingival bleeding Status: Acute (8) Tooth loss due to gum disease Status: Acute (9) Dental decay Status: Acute (10) Depression Status: Acute - Assessment and Plan (Free Text) Plan: ECHO AND [place] ST IN AM TO RULE OUT ISCHEMIA CONT TELE. NO PE NO DVT NOTED SHOULD RESTART ELIQUIS GIVEN EXTENSIVE HX OF DVT AND PE EVAL FOR PERIDONTAL DISEASE, CONSIDER SCURVY SOAP INSPECTOR NEEDED. URINE TOX NOT DONE ON INITIAL PRESENTATION ALSO CONSIDER HEMATOLOGY FOR HYPERCOAG PRATHER PER PT HE HAD CARDIAC CATH DONE MANY YEARS AGO, NO RECORDS AVAILABLE. 75 MIN TOTAL CARE TIME
--- NOTE | 2018-12-03 22:46 | CARD ---
APPROVED REPORT Date of service: 12/03/2018 EKG Measurement Heart [id number] <Conclusion> Normal sinus rhythm Nonspecific T wave abnormality Abnormal ECG
[2018-12-03] MEDS: ceFAZolin 1 GM in Sodium Chloride 0.9% 100 ML IVPB SCH (23:12)
[2018-12-04 07:03] LABS: HEMOGLOBIN 10.2 g/dL (12.0-18.0); MEAN CELL VOLUME 75.7 fl (80.0-94.0); MEAN CORPUSCULAR HEMOGLOBIN 24.1 pg (27.0-31.0); MEAN CORPUSCULAR HGB CONC 31.8 g/dL (33.0-37.0); RBC 4.23 Mil/uL (4.40-5.90)
[2018-12-04 07:28] LABS: BLOOD UREA NITROGEN 6 mg/dl (9-20); CALCIUM 8.5 mg/dL (8.4-10.2); GFR NON-AFRICAN AMERICAN > 60; IRON 39 ug/dL (49-181)
[2018-12-04] MEDS ORDERED: Enoxaparin 40 mg Syringe SC SCH (09:00)
[2018-12-04] MEDS ORDERED: Aminophylline 25 mg/ml Inj ONE (10:06)
[2018-12-04] MEDS: ceFAZolin 1 GM in Sodium Chloride 0.9% 100 ML IVPB SCH ×2 (10:46→16:41)
--- NOTE | 2018-12-04 11:12 | CP.PCM.CON ---
History of Present Illness - History of Present Illness History of Present Illness: Infectious disease consultation note Asked to see this patient at the request of Dr. Teresa for bilateral lower extremity ? Cellulitis. HPI Patient is a 43-year-old male with past medical history of DVTs and pulmonary embolisms in the past who had an IVC filter placed more than 15 years ago who is now admitted for complaints of shortness of breath on exertion more so in the past several weeks. I am asked to see the patient because he is noted to have bilateral lower extremity swelling and erythema. Patient denies any fever or chills, denies any nausea vomiting, denies any cough, positive shortness of breath especially with exertion, denies any abdominal pain, denies any dysuria, denies any diarrhea, he denies any pain in his lower extremities and states that his legs always gets swelling and then the swelling goes down on its own. He does complain of itchy rash in the groin region and underneath his abdominal skin region as well. Allergyno known drug allergies Review of Systems - Review of Systems Review of Systems: ROS As stated in HPI. Past Patient History - Infectious Disease Hx of Infectious Diseases: None - Tetanus Immunizations Tetanus Immunization: Unknown - Past Medical History & Family History Past Medical History?: Yes - Past Social History Smoking Status: Never Smoked Chewing Tobacco Use: No Cigar Use: No Alcohol: Social Drugs: Other (methadone program ) Home Situation {Lives}: With Family Domestic Violence: Negative - CARDIAC Hx Cardiac Disorders: Yes Hx Peripheral Edema: Yes - PULMONARY Hx Respiratory Disorders: Yes Hx Pulmonary Embolism: Yes - NEUROLOGICAL Hx Neurological Disorder: No - HEENT Hx HEENT Problems: No - RENAL Hx Chronic Kidney Disease: No - ENDOCRINE/METABOLIC Hx Endocrine Disorders: No - HEMATOLOGICAL/ONCOLOGICAL Hx Blood Disorders: No - INTEGUMENTARY Hx Dermatological Problems: No - MUSCULOSKELETAL/RHEUMATOLOGICAL Hx Musculoskeletal Disorders: Yes Hx Fractures: Yes - GASTROINTESTINAL Hx Gastrointestinal Disorders: No Other/Comment: Gastric Bypass with selve - GENITOURINARY/GYNECOLOGICAL Hx Genitourinary Disorders: No - PSYCHIATRIC Hx Psychophysiologic Disorder: Yes Hx Depression: Yes - SURGICAL HISTORY Hx Surgeries: Yes Hx Cholecystectomy: Yes - ANESTHESIA Hx Anesthesia: Yes Hx Anesthesia Reactions: No Hx Malignant Hyperthermia: No Meds Allergies/Adverse Reactions: Allergies Allergy/AdvReac Type Severity Reaction Status Date / Time No Known Allergies Allergy Verified 12/03/18 06:44 - Medications Medications: Current Medications Acetaminophen (Tylenol 325mg Tab) 650 mg PO Q4 PRN PRN Reason: pain 3-7 Last Admin: 12/03/18 23:09 Dose: 650 mg Enoxaparin Sodium (Lovenox) 40 mg SC DAILY [facility]; Protocol Cefazolin Sodium 1 gm/ Sodium (Chloride) 100 mls @ 100 mls/hr IVPB Q8 [facility]; Protocol Last Admin: 12/04/18 10:46 Dose: 100 mls/hr Methadone HCl (Methadone) 160 mg PO DAILY [facility] Last Admin: 12/04/18 10:46 Dose: 160 mg Physical Exam - Constitutional Appears: No Acute Distress - Head Exam Head Exam: ATRAUMATIC - Eye Exam Eye Exam: EOMI, PERRL - Neck Exam Neck exam: Positive for: Full Rom - Respiratory Exam Additional comments: slight tachypnea, no wheezing breath sounds heard B/L - Cardiovascular Exam Cardiovascular Exam: RRR, +S1, +S2 - GI/Abdominal Exam GI & Abdominal Exam: Normal Bowel Sounds, Soft Additional comments: NT, obese intertrigo present in lower abd skin fold - Extremities Exam Additional comments: b/l LE venous stais dermatitis changes, b/l varciose veins no warmth, no fluctuation, no sign of cellulitis - Neurological Exam Neurological exam: Alert, Oriented x3 Results - Vital Signs Recent Vital Signs: Last Vital Signs Temp 98.4 F 12/04/18 08:09 Pulse 60 12/04/18 09:27 Resp 20 12/04/18 08:09 BP 118/70 12/04/18 09:27 Pulse Ox 95 12/04/18 08:09 - Labs Result Diagrams: 12/04/18 04:50 12/04/18 04:50 Labs: Laboratory Results - last 24 hr 12/03/18 12/04/18 12/04/18 19:00 04:50 04:50 WBC RBC Hgb Hct MCV MCH MCHC RDW Plt Count Sodium 136 Potassium 4.3 Chloride 98 Carbon Dioxide 29 Anion Gap 13 BUN 6 L Creatinine 1.0 Est GFR ( Amer) > 60 Est GFR (Non-Af Amer) > 60 Random Glucose 76 Calcium 8.5 Iron 39 L Troponin I < 0.0120 < 0.0120 Vitamin B12 265 TSH 3rd Generation 12/04/18 12/04/18 04:50 04:50 WBC 5.0 RBC 4.23 L Hgb 10.2 L Hct 32.0 L MCV 75.7 L MCH 24.1 L MCHC 31.8 L RDW 17.0 H Plt Count 190 Sodium Potassium Chloride Carbon Dioxide Anion Gap BUN Creatinine Est GFR ( Amer) Est GFR (Non-Af Amer) Random Glucose Calcium Iron Troponin I Vitamin B12 TSH 3rd Generation 1.59 Microbiology 12/03/18 08:43 Blood-Venous Blood Culture - Preliminary NO GROWTH AFTER 24 HOURS 12/03/18 08:13 Blood-Venous Blood Culture - Preliminary NO GROWTH AFTER 24 HOURS Assessment & Plan - Assessment and Plan (Free Text) Assessment: Assessment and plan 43-year-old male with history of morbid obesity and history of previous DVTs and pulmonary embolisms who was admitted with complaints of shortness of breath and I am asked to see the patient for bilateral lower extremity swelling and rule out cellulitis. Patient is afebrile and has normal white blood cell count Blood culturesnegative x 2 Both lower extremity Doppler and CTA were negative for DVT and PE respectively (as per report) Plan No evidence of cellulitis based on clinical exam. Patient has venous stasis dermatitis in bilateral lower extremities. No need for any antibiotics at this time. Advised patient to keep his feet elevated when he is resting in bed or when he is sitting in the chair. May benefit from vascular consult. All labs and imaging and pertinent chart notes were reviewed. All above discussed with patient and he verbalizes full understanding of all the above and agrees with plan of care. Thank you for allowing me to take part in the care of this patient.
--- NOTE | 2018-12-04 16:20 | CP.PCM.HP ---
History of Present Illness - History of Present Illness History of Present Illness: CC: Respiratory Distress. R leg pain. 43 y/o M, PMHx: PE, DVT with IVC filter 15 yrs ago, Gastric Bypass, Anxiety, depression. Pt came to [facility] on 12/03 18 to be evaluated for respiratory insufficiency, gradually increased from 2 weeks [employer] with no relief, describes as moderate SOB with exertion, associated to intermittent chest pain of moderate intensity when SOB. Worsening symptoms: C/O R leg pain, described as intermittent, sharp, pressure type, moderate intensity 7:10, associated to swelling/redness/erythema in the area, Pt on Methadone program for chronic back pain 2nd to multiple back surgeries and no improvement. As per PT, He DC Eliquis 3 months ago 2nd to gums bleeding and teeth falling reaction. Aggravated factor: Walking, ADL's. Pt denied: Fever, chills, cough, palpitations, dizziness, syncope, numbness, n/v/d, abdominal pain, urinary symptoms, sick contact, recent travel out of [facility]. CXR: No acute cardiopulmonary disease. Ext U-S: No DVT. Chest CT: Unremarkable. EKG: Normal sinus rhythm. Present on Admission - Present on Admission Any Indicators Present on Admission: Yes History of DVT/PE: Yes Review of Systems - Constitutional Constitutional: Other (Obese.) - EENT Eyes: Other (negative) Ears: Other (negative) Nose/Mouth/Throat: Other (negative) - Cardiovascular Cardiovascular: Chest Pain (when SOB), Leg Edema - Respiratory Respiratory: Dyspnea on Exertion - Gastrointestinal Gastrointestinal: Other (negative) - Genitourinary Genitourinary: Other (negative) - Musculoskeletal Musculoskeletal: Back Pain, Other (RLE pain) - Integumentary Integumentary: Dry Skin, Erythema, Swelling - Neurological Neurological: Other (negative) - Psychiatric Psychiatric: Anxiety, Depression - Endocrine Endocrine: Other (obese) - Hematologic/Lymphatic Hematologic: Other (negative) Past Patient History - Infectious Disease Hx of Infectious Diseases: None - Tetanus Immunizations Tetanus Immunization: Unknown - Past Medical History & Family History Past Medical History?: Yes Pertinent Family History: Brother heart attack. - Past Social History Smoking Status: Never Smoked Chewing Tobacco Use: No Cigar Use: No Alcohol: Social Drugs: Other (methadone program ) Home Situation {Lives}: With Family Domestic Violence: Negative - CARDIAC Hx Cardiac Disorders: Yes Hx Peripheral Edema: Yes - PULMONARY Hx Respiratory Disorders: Yes Hx Pulmonary Embolism: Yes - NEUROLOGICAL Hx Neurological Disorder: No - HEENT Hx HEENT Problems: No - RENAL Hx Chronic Kidney Disease: No - ENDOCRINE/METABOLIC Hx Endocrine Disorders: No - HEMATOLOGICAL/ONCOLOGICAL Hx Blood Disorders: No Hx Human Immunodeficiency Virus (HIV): No - INTEGUMENTARY Hx Dermatological Problems: No - MUSCULOSKELETAL/RHEUMATOLOGICAL Hx Musculoskeletal Disorders: Yes Hx Fractures: Yes - GASTROINTESTINAL Hx Gastrointestinal Disorders: No Other/Comment: Gastric Bypass with selve - GENITOURINARY/GYNECOLOGICAL Hx Genitourinary Disorders: No - PSYCHIATRIC Hx Psychophysiologic Disorder: Yes Hx Depression: Yes - SURGICAL HISTORY Hx Surgeries: Yes Hx Cholecystectomy: Yes - ANESTHESIA Hx Anesthesia: Yes Hx Anesthesia Reactions: No Hx Malignant Hyperthermia: No Meds Home Medications: Home Medication List Medication Instructions Recorded Confirmed Type Cyanocobalamin [Vitamin B12 1000 1,000 mcg SC DAILY vial 12/05/18 Rx mcg/ml Inj] DULoxetine [Cymbalta] 30 mg PO BID #60 ecc 12/05/18 Rx Ergocalciferol [Drisdol 50,000 1 cap PO Q7D #30 cap 12/05/18 Rx Intl Units Cap] Allergies/Adverse Reactions: Allergies Allergy/AdvReac Type Severity Reaction Status Date / Time No Known Allergies Allergy Verified 12/03/18 06:44 Physical Exam - Constitutional Appears: No Acute Distress, Other (overweight) - Head Exam Head Exam: NORMAL INSPECTION - Eye Exam Eye Exam: PERRL - ENT Exam ENT Exam: Normal Exam - Neck Exam Neck exam: Positive for: Normal Inspection - Respiratory Exam Respiratory Exam: NORMAL BREATHING PATTERN - Cardiovascular Exam Cardiovascular Exam: REGULAR RHYTHM - GI/Abdominal Exam GI & Abdominal Exam: Normal Bowel Sounds, Soft Additional comments: Lower abdomen fold with maceration, redness. - Extremities Exam Additional comments: redness, swelling, edema, venous stasis changes BLE R > L. - Back Exam Back exam: tenderness (L-S) - Neurological Exam Neurological exam: Alert, Oriented x3 Additional comments: Obeys commands. No motor/sensory deficit. - Psychiatric Exam Psychiatric exam: Anxious, Depressed - Skin Skin Exam: Dry (and scaly R lower ext.), Warm Results - Vital Signs Recent Vital Signs: Last Vital Signs Temp 98.7 F 12/04/18 15:47 Pulse 60 12/04/18 15:47 Resp 18 12/04/18 15:47 BP 114/75 12/04/18 15:47 Pulse Ox 94 L 12/04/18 15:47 reviewed J.P. - Labs Result Diagrams: 12/04/18 04:50 12/04/18 04:50 Labs: Laboratory Results - last 24 hr 12/03/18 12/04/18 12/04/18 19:00 04:50 04:50 WBC RBC Hgb Hct MCV MCH MCHC RDW Plt Count Sodium 136 Potassium 4.3 Chloride 98 Carbon Dioxide 29 Anion Gap 13 BUN 6 L Creatinine 1.0 Est GFR ( Amer) > 60 Est GFR (Non-Af Amer) > 60 Random Glucose 76 Lactic Acid Calcium 8.5 Iron 39 L Troponin I < 0.0120 < 0.0120 Vitamin B12 265 25-OH Vitamin D Total < 12.8 L TSH 3rd Generation 12/04/18 12/04/18 12/04/18 04:50 04:50 10:35 WBC 5.0 RBC 4.23 L Hgb 10.2 L Hct 32.0 L MCV 75.7 L MCH 24.1 L MCHC 31.8 L RDW 17.0 H Plt Count 190 Sodium Potassium Chloride Carbon Dioxide Anion Gap BUN Creatinine Est GFR ( Amer) Est GFR (Non-Af Amer) Random Glucose Lactic Acid Calcium Iron Troponin I < 0.0120 Vitamin B12 25-OH Vitamin D Total TSH 3rd Generation 1.59 12/04/18 14:25 WBC RBC Hgb Hct MCV MCH MCHC RDW Plt Count Sodium Potassium Chloride Carbon Dioxide Anion Gap BUN Creatinine Est GFR ( Amer) Est GFR (Non-Af Amer) Random Glucose Lactic Acid 1.8 Calcium Iron Troponin I Vitamin B12 25-OH Vitamin D Total TSH 3rd Generation reviewed J.P. - EKG Data EKG comments: Reviewed J.P. 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 - Date & Time Date: 12/04/18 Time: 12:30
[2018-12-04] MEDS: Ergocalciferol 50,000 Intl Units Cap PO SCH (16:41)
[2018-12-04] MEDS: Enoxaparin 60 mg Syringe SC SCH (16:42)
--- NOTE | 2018-12-04 17:55 | CP.PCM.PN ---
Subjective - Date & Time of Evaluation Date of Evaluation: 12/04/18 Time of Evaluation: 17:55 Objective - Vital Signs/Intake and Output Vital Signs (last 24 hours): Temp Pulse Resp BP Pulse Ox 98.7 F 60 18 114/75 94 L 12/04/18 15:47 12/04/18 15:47 12/04/18 15:47 12/04/18 15:47 12/04/18 15:47 - Medications Medications: Current Medications Acetaminophen (Tylenol 325mg Tab) 650 mg PO Q4 PRN PRN Reason: pain 3-7 Last Admin: 12/04/18 11:24 Dose: 650 mg Enoxaparin Sodium (Lovenox) 50 mg SC DAILY [facility]; Protocol Last Admin: 12/04/18 16:42 Dose: 50 mg Ergocalciferol (Drisdol 50,000 Intl Units Cap) 1 cap PO Q7D [facility] Last Admin: 12/04/18 16:41 Dose: 1 cap Methadone HCl (Methadone) 160 mg PO DAILY [facility] Last Admin: 12/04/18 10:46 Dose: 160 mg Sertraline HCl (Zoloft) 50 mg PO DAILY [facility] Last Admin: 12/04/18 16:41 Dose: 50 mg - Labs Labs: 12/04/18 04:50 12/04/18 04:50 PT 12.1 Seconds (9.8-13.1) 12/03/18 08:43 INR 1.1 12/03/18 08:43 Assessment and Plan (1) Dyspnea on exertion Status: Acute (2) Fatigue Status: Acute (3) Edema Status: Acute (4) Presence of IVC filter Status: Chronic (5) Hx of deep venous thrombosis Status: Chronic (6) Hx pulmonary embolism Status: Chronic (7) History of gingival bleeding Status: Deleted (8) Tooth loss due to gum disease Status: Acute (9) Dental decay Status: Acute (10) Depression Status: Acute
--- NOTE | 2018-12-04 18:58 | CARD ---
APPROVED REPORT Date of service: 12/04/2018 EXAM: Two-dimensional and M-mode echocardiogram with Doppler and color Doppler. Other Information Quality : GoodRhythm : NSR INDICATION Chest Pain 2D DIMENSIONS IVSd1.55 (0.7-1.1cm)LVDd4.61 (3.9-5.9cm) LVOT Diameter2.87 (1.8-2.4cm)PWd1.29 (0.7-1.1cm) IVSs1.43 (0.8-1.2cm)LVDs2.83 (2.5-4.0cm) FS (%) 38.7 %PWs1.53 (0.8-1.2cm) M-Mode DIMENSIONS Left Atrium (MM)4.89 (2.5-4.0cm)IVSd1.07 (0.7-1.1cm) Aortic Root3.57 (2.2-3.7cm)LVDd6.03 (4.0-5.6cm) Aortic Cusp Exc.2.65 (1.5-2.0cm)PWd0.88 (0.7-1.1cm) IVSs1.40 cmFS (%) 43 % LVDs3.46 (2.0-3.8cm)PWs1.40 cm Aortic Valve AoV Peak Tvqckhag990.2cm/sAoV VTI30.5cmAO Peak GR.11mmHg LVOT Peak Pilyrnir601.0cm/sLVOT VTI24.78cmAO Mean GR.6mmHg JOSE (VMAX)1.49sk6FBW (VTI)1.89cm2 Mitral Valve MV E Utfflbqr71.6cm/sMV DECEL CTZM120jcJD A Iyqqcjch46.3cm/s MV XKO08lqL/A ratio1.2MVA (PHT)3.45cm2 TDI Lateral E' Peak V13.12cm/sMedial E' Peak V7.90cm/sE/Lateral E'4.8 E/Medial E'7.9 LEFT VENTRICLE The left ventricle is normal size. There is mild concentric left ventricular hypertrophy. The left ventricular systolic function is normal. The estimated ejection fraction is 55-60% No regional wall motion abnormalities noted.. The left ventricular diastolic function is normal. No left ventricle thrombus noted on this study. There is no ventricular septal defect visualized. There is no left ventricular aneurysm. There is no mass noted in the left ventricle. RIGHT VENTRICLE The right ventricle is normal size. There is normal right ventricular wall thickness. The right ventricular systolic function is normal. ATRIA The left atrium is moderately dilated. The right atrium size is normal. The interatrial septum is intact with no evidence for an atrial septal defect. AORTIC VALVE The aortic valve is normal in structure. No aortic regurgitation is present. There is no aortic valvular stenosis. There is no aortic valvular vegetation. MITRAL VALVE The mitral valve is normal in structure. There is no evidence of mitral valve prolapse. There is no mitral valve stenosis. There is mild mitral valve regurgitation noted. TRICUSPID VALVE The tricuspid valve is normal in structure. There is trace tricuspid valve regurgitation noted. There is no tricuspid valve prolapse or vegetation. There is no tricuspid valve stenosis. PULMONIC VALVE The pulmonary valve is normal in structure. There is no pulmonic valvular regurgitation. There is no pulmonic valvular stenosis. GREAT VESSELS The aortic root is normal in size. The ascending aorta is normal in size. The pulmonary artery is normal. The IVC is normal in size and collapses >50% with inspiration. PERICARDIAL EFFUSION There is no pericardial effusion. There is no pleural effusion. <Conclusion> There is mild concentric left ventricular hypertrophy. The estimated ejection fraction is 55-60% The left ventricular diastolic function is normal. The left atrium is moderately dilated. There is mild mitral valve regurgitation noted. There is trace tricuspid valve regurgitation noted.
[2018-12-05 05:27] LABS: HDL CHOLESTEROL 35 MG/DL (30-70)
[2018-12-05 05:37] LABS: LDL CHOLESTEROL 75 mg/dL (0-129)
--- NOTE | 2018-12-05 07:47 | CP.PCM.CON ---
History of Present Illness - History of Present Illness History of Present Illness: Psychiatry consult note CC: Depression HPI: 43 yo male, , living with family, h/o depression, non-compliance with psychiatric treatment, h/o opioid abuse, on methadone, admitted w/ SOB. Patient reports that he feels depressed due to chronic pain, limited mobility and feels anxious leaving his home. He also reports intermittent sleep disturbances. He denies suicidal ideation/plan/intent. No psychotic symptoms. Psychoeducation provided that patient needs to make an effort to comply with psychiatric treatment and medications. A + O x 4. PPHx: History of psychiatric admission in 2016, not compliant with treatment or medications. FHx: Has a nephew who committed suicide MHx: RLE thrombectomy 06/2015, cholecystectomy, gastric banding/reversal, R/L knee surgeries, h/o DVT s/p Dixon filter SHx: , lives w/ and 20 yo son. Denies current alcohol/drug/cig use All: NKDA Impression: 43 yo male with h/o MDD, opioid use disorder, not compliant with psychiatric treatment. -Recommend to start Cymbalta -Psychoeducation provided that patient would benefit from outpatient psychiatric treatment and psychotherapy -No acute psychiatric admission indicated at this time Past Patient History - Infectious Disease Hx of Infectious Diseases: None - Tetanus Immunizations Tetanus Immunization: Unknown - Past Medical History & Family History Past Medical History?: Yes - Past Social History Smoking Status: Never Smoked Chewing Tobacco Use: No Cigar Use: No Alcohol: Social Drugs: Other (methadone program ) Home Situation {Lives}: With Family Domestic Violence: Negative - CARDIAC Hx Cardiac Disorders: Yes Hx Peripheral Edema: Yes - PULMONARY Hx Respiratory Disorders: Yes Hx Pulmonary Embolism: Yes - NEUROLOGICAL Hx Neurological Disorder: No - HEENT Hx HEENT Problems: No - RENAL Hx Chronic Kidney Disease: No - ENDOCRINE/METABOLIC Hx Endocrine Disorders: No - HEMATOLOGICAL/ONCOLOGICAL Hx Blood Disorders: No Hx Human Immunodeficiency Virus (HIV): No - INTEGUMENTARY Hx Dermatological Problems: No - MUSCULOSKELETAL/RHEUMATOLOGICAL Hx Musculoskeletal Disorders: Yes Hx Fractures: Yes - GASTROINTESTINAL Hx Gastrointestinal Disorders: No Other/Comment: Gastric Bypass with selve - GENITOURINARY/GYNECOLOGICAL Hx Genitourinary Disorders: No - PSYCHIATRIC Hx Psychophysiologic Disorder: Yes Hx Depression: Yes - SURGICAL HISTORY Hx Surgeries: Yes Hx Cholecystectomy: Yes - ANESTHESIA Hx Anesthesia: Yes Hx Anesthesia Reactions: No Hx Malignant Hyperthermia: No Meds Allergies/Adverse Reactions: Allergies Allergy/AdvReac Type Severity Reaction Status Date / Time No Known Allergies Allergy Verified 12/03/18 06:44 - Medications Medications: Current Medications Acetaminophen (Tylenol 325mg Tab) 650 mg PO Q4 PRN PRN Reason: pain 3-7 Last Admin: 12/04/18 11:24 Dose: 650 mg Enoxaparin Sodium (Lovenox) 50 mg SC DAILY [facility]; Protocol Last Admin: 12/04/18 16:42 Dose: 50 mg Ergocalciferol (Drisdol 50,000 Intl Units Cap) 1 cap PO Q7D [facility] Last Admin: 12/04/18 16:41 Dose: 1 cap Methadone HCl (Methadone) 160 mg PO DAILY [facility] Last Admin: 12/04/18 10:46 Dose: 160 mg Sertraline HCl (Zoloft) 50 mg PO DAILY [facility] Last Admin: 12/04/18 16:41 Dose: 50 mg Results - Vital Signs Recent Vital Signs: Last Vital Signs Temp 97.9 F 12/05/18 05:00 Pulse 69 12/05/18 05:00 Resp 16 12/05/18 05:00 BP 115/77 12/05/18 05:00 Pulse Ox 96 12/05/18 05:00 - Labs Result Diagrams: 12/04/18 04:50 12/04/18 04:50 Labs: Laboratory Results - last 24 hr 12/04/18 12/04/18 12/04/18 04:50 04:50 10:35 ESR Lactic Acid Troponin I < 0.0120 Triglycerides Cholesterol LDL Cholesterol Direct HDL Cholesterol Vitamin B12 265 25-OH Vitamin D Total < 12.8 L 12/04/18 12/04/18 12/05/18 14:25 14:25 04:25 ESR 39 H Lactic Acid 1.8 Troponin I Triglycerides 52 D Cholesterol 123 LDL Cholesterol Direct 75 HDL Cholesterol 35 Vitamin B12 25-OH Vitamin D Total
[2018-12-05] MEDS: Enoxaparin 60 mg Syringe SC SCH (10:57)
--- NOTE | 2018-12-05 15:23 | CP.PCM.PN ---
Subjective - Date & Time of Evaluation Date of Evaluation: 12/05/18 Time of Evaluation: 15:23 Objective - Vital Signs/Intake and Output Vital Signs (last 24 hours): Temp Pulse Resp BP Pulse Ox 98.2 F 75 18 101/72 96 12/05/18 12:01 12/05/18 13:20 12/05/18 12:01 12/05/18 12:01 12/05/18 13:20 - Medications Medications: Current Medications Acetaminophen (Tylenol 325mg Tab) 650 mg PO Q4 PRN PRN Reason: pain 3-7 Last Admin: 12/04/18 11:24 Dose: 650 mg Cyanocobalamin (Vitamin B12 1000 Mcg/Ml Inj) 1,000 mcg SC DAILY [facility] Last Admin: 12/05/18 10:57 Dose: 1,000 mcg Duloxetine HCl (Cymbalta) 30 mg PO BID [facility] Last Admin: 12/05/18 10:57 Dose: 30 mg Enoxaparin Sodium (Lovenox) 50 mg SC DAILY [facility]; Protocol Last Admin: 12/05/18 10:57 Dose: 50 mg Ergocalciferol (Drisdol 50,000 Intl Units Cap) 1 cap PO Q7D [facility] Last Admin: 12/04/18 16:41 Dose: 1 cap Methadone HCl (Methadone) 160 mg PO DAILY [facility] Last Admin: 12/05/18 10:58 Dose: 160 mg Nystatin (Nystop Topical Powder) 1 applic TOP TID [facility] - Labs Labs: 12/04/18 04:50 12/04/18 04:50 PT 12.1 Seconds (9.8-13.1) 12/03/18 08:43 INR 1.1 12/03/18 08:43 Assessment and Plan (1) Dyspnea on exertion Status: Acute (2) Fatigue Status: Acute (3) Edema Status: Acute (4) Presence of IVC filter Status: Chronic (5) Hx of deep venous thrombosis Status: Chronic (6) Hx pulmonary embolism Status: Chronic (7) History of gingival bleeding Status: Deleted (8) Tooth loss due to gum disease Status: Acute (9) Dental decay Status: Acute (10) Depression Status: Acute - Assessment and Plan (Free Text) Plan: STRESS TEST IMAGES PERSONALLY REVIEWED. NO EVIDENCE OF ISCHEMIA. NORMAL EF.
--- NOTE | 2018-12-05 16:03 | CARD ---
APPROVED REPORT Date of service: 12/03/2018 Protocol: LEXISCAN Test Type: LEXISCAN Medications: METHADONE 160MG FOLIC ACID SERTRALINE 100MG WARFAREN ELIQUES 2.5MG Medical History: FAMILY HX OCAD, DEPRESSION, DVT, FRACTURE-PE, CHOLECYSTECTOMY, SPINAL STIMULATOR INFUSION, ICUP-15YRS Target HR: 175 bpm Resting ECG: abnormal Resting Heart Rate: 63 bpm Resting Blood Pressure: 123/70mmHg submaximum (85%): 149 bpm TEST SUMMARY PREINJECTPRE-INJEC10:[id number]/70.0. [id number]/[id number]. INJECTIONNS FLUSH00:[id number]/83.0. INJECTIONNUC MED00:[id number]/83.0. [id number]/[id number]. PROCEDURE Pharmacologic stress testing was performed using 0.4mg per 5ml of regadenoson given intravenously over 7-10 seconds. POST EXERCISE Reason for Termination: Target heart rate achieved Target HR: No Max HR: 87 bpm 49% of Maximum Predicted HR: 175 bpm Exercise duration: 01:00 min:sec, 0 Stage Exercise capacity: 1.0METs Max Blood Pressure: 147/94mmHg Blood Pressure response to exercise: normal resting BP - appropriate response Heart Rate response to exercise: appropriate Chest Pain: No, none Angina index: 0 Arrhythmia: No, none ST Change: Yes, Depression upsloping Deviation: 0 mm Clinical Indications Under Appropriate Use Criteria Patient with history of DVT and pulmonary empbolsim for Lexiscan stress tset. Stress EKG Interpretation Electrocardiogram has moderate criteria for LVH voltage criteria. No st or t wave changes noticed. No chest pain reported. RESTING ECG Rhythm: Sinus Conduction: Normal Arrhythmias: None Repolarization: Normal STRESS ECG Rhythm: Sinus Conduction: Normal Arrhythmias: None Repolarization: Normal none ST-Segment changes. EXAM: Myocardial Perfusion REST/STRESS Image QualityGood Imaging Protocol The imaging protocol used to acquire images was Rest Tc-99m/stress Tc-99m 2 days Rest Spect myocardial perfusion imaging was performed in supine position 150 minutes following the injection of 30 mCi of Tc-99 Myoview. Time of rest injection: 7:44 Time of rest imagin:17 At peak stress, the patient was injected intravenously with 30mCi of Tc-99 tetrofosmin after an infusion time of minutes and seconds. Time of stress injection: 10:14 Time of stress imagin:00 Gated Stress Spect was performed 105 minutes after intravenous Tc-99 Myoview injection. The images were gated to evaluate regional wall motion and calculate ventricular ejection fraction. NUCLEAR IMAGE INTERPRETATION Study quality was excellent. Left Ventricular size was Normal at Rest and Stress. Lung uptake was Normal. Left Ventricular ejection fraction is 62%. The rest and stress images show normal perfusion, normal contraction and thickening. LV Perfusion Normal perfusion scan LV Perfusion 1 Type of Perfusion Defect: Reversible The rest and stress images show normal perfusion. Wall Motion MInor hypokinesia of apex with LVEF 62% CONCLUSION 1. Normal Lexiscan stress test Recommendation Medical therapy
--- NOTE | 2018-12-05 17:02 | CP.PCM.PN ---
Subjective - Date & Time of Evaluation Date of Evaluation: 12/05/18 Time of Evaluation: 11:00 - Subjective Subjective: F/U Venous stasis BLE TALBOT, no SOB at rest, O2 NC Objective - Vital Signs/Intake and Output Vital Signs (last 24 hours): Temp Pulse Resp BP Pulse Ox 97.6 F 58 L 18 123/81 96 12/05/18 15:58 12/05/18 15:58 12/05/18 15:58 12/05/18 15:58 12/05/18 15:58 - Medications Medications: Current Medications Acetaminophen (Tylenol 325mg Tab) 650 mg PO Q4 PRN PRN Reason: pain 3-7 Last Admin: 12/04/18 11:24 Dose: 650 mg Cyanocobalamin (Vitamin B12 1000 Mcg/Ml Inj) 1,000 mcg SC DAILY [facility] Last Admin: 12/05/18 10:57 Dose: 1,000 mcg Duloxetine HCl (Cymbalta) 30 mg PO BID [facility] Last Admin: 12/05/18 10:57 Dose: 30 mg Enoxaparin Sodium (Lovenox) 50 mg SC DAILY [facility]; Protocol Last Admin: 12/05/18 10:57 Dose: 50 mg Ergocalciferol (Drisdol 50,000 Intl Units Cap) 1 cap PO Q7D [facility] Last Admin: 12/04/18 16:41 Dose: 1 cap Methadone HCl (Methadone) 160 mg PO DAILY [facility] Last Admin: 12/05/18 10:58 Dose: 160 mg Nystatin (Nystop Topical Powder) 1 applic TOP TID [facility] Pantoprazole Sodium (Protonix Ec Tab) 40 mg PO DAILY [facility] - Labs Labs: 12/04/18 04:50 12/04/18 04:50 PT 12.1 Seconds (9.8-13.1) 12/03/18 08:43 INR 1.1 12/03/18 08:43 - Constitutional Appears: No Acute Distress - Head Exam Head Exam: NORMAL INSPECTION - Eye Exam Eye Exam: PERRL - ENT Exam ENT Exam: Normal Exam - Neck Exam Neck Exam: Normal Inspection - Respiratory Exam Respiratory Exam: NORMAL BREATHING PATTERN - Cardiovascular Exam Cardiovascular Exam: REGULAR RHYTHM - GI/Abdominal Exam GI & Abdominal Exam: Soft, Normal Bowel Sounds Additional comments: Lower abdomen fold with maceration, redness. - Extremities Exam Additional comments: BLE venous stasis dermatitis, R > L, BLE varicose veins. - Back Exam Back Exam: tenderness (L-S) - Neurological Exam Neurological Exam: Alert, Oriented x3. 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
[2018-12-05] MEDS: Pantoprazole 40 mg EC Tab PO SCH (17:33)
--- NOTE | 2018-12-05 17:44 | US ---
Date of service: 12/04/2018 PROCEDURE: Duplex ultrasound of the bilateral lower extremity arteries. HISTORY: r/o pvd COMPARISON: None available. TECHNIQUE: Grayscale and duplex Doppler evaluation of the bilateral common femoral, superficial femoral, popliteal, posterior tibial and dorsalis pedis arteries was performed.. FINDINGS: RIGHT LOWER EXTREMITY: RIGHT COMMON FEMORAL ARTERY: Widely patent. Maximal flow velocity of 76.8 cm/s. RIGHT SUPERFICIAL FEMORAL ARTERY: Widely patent. Maximal flow velocity of 76.2 cm/s. RIGHT POPLITEAL ARTERY:Widely patent. Maximal flow velocity of 65.9 cm/s. RIGHT POSTERIOR TIBIAL ARTERY: Widely patent. Maximal flow velocity of 54.0 cm/s. RIGHT DORSALIS PEDIS ARTERY: Widely patent. Maximal flow velocity of 35.9 cm/s. LEFT LOWER EXTREMITY: LEFT COMMON FEMORAL ARTERY: Widely patent. Maximal flow velocity of 95.2 cm/s. LEFT SUPERFICIAL FEMORAL ARTERY: Widely patent. Maximal flow velocity of 85.5 cm/s. LEFT POPLITEAL ARTERY:Widely patent. Maximal flow velocity of 65.6 cm/s. LEFT POSTERIOR TIBIAL ARTERY: Widely patent. Maximal flow velocity of 32.1 cm/s. LEFT DORSALIS PEDIS ARTERY: Widely patent. Maximal flow velocity of 55.0 cm/s. OTHER FINDINGS: Unilateral, left popliteal fossa cyst 2.8 x 6.1 cm. IMPRESSION: Normal Duplex Doppler of the bilateral lower extremity arteries. Left Escamilla cyst.
[2018-12-06] MEDS: Enoxaparin 60 mg Syringe SC SCH (09:38)
[2018-12-06] MEDS: Pantoprazole 40 mg EC Tab PO SCH (09:38)
[2018-12-06 10:46] LABS: ABG ALLEN TEST YES; ARTERIAL BLOOD GAS HCO3 24.1 mmol/L (21-28); ARTERIAL BLOOD GAS HEMOGLOBIN 10.7 g/dL (11.7-17.4); ARTERIAL BLOOD GAS O2 CAPACITY 14.7 mL/dL (16-24); ARTERIAL BLOOD GAS O2 CONTENT 14.3 ML/dL (15-23); ARTERIAL BLOOD GAS O2 SAT 97.5 % (95-98); ARTERIAL BLOOD GAS PCO2 45 mm/Hg (35-45); ARTERIAL BLOOD GAS PH 7.35 (7.35-7.45); ARTERIAL BLOOD GAS PO2 75 mm/Hg (80-100); ARTERIAL BLOOD GAS TCO2 26.2 mmol/L (22-28)
--- NOTE | 2018-12-06 17:20 | CP.PCM.PN ---
Subjective - Date & Time of Evaluation Date of Evaluation: 12/07/18 Time of Evaluation: 15:30 - Subjective Subjective: F/U Venous stasis dermatitis BLE No S OB at rest, complains of dyspnea on exertion lightheadedness dizziness going out of bed walking into the room and in the abebe Objective - Vital Signs/Intake and Output Vital Signs (last 24 hours): Temp Pulse Resp BP Pulse Ox 98.0 F 64 18 110/72 91 L 12/06/18 16:25 12/06/18 16:25 12/06/18 16:25 12/06/18 16:25 12/06/18 16:25 - Medications Medications: Current Medications Acetaminophen (Tylenol 325mg Tab) 650 mg PO Q4 PRN PRN Reason: pain 3-7 Last Admin: 12/05/18 21:23 Dose: 650 mg Cyanocobalamin (Vitamin B12 1000 Mcg/Ml Inj) 1,000 mcg SC DAILY [facility] Last Admin: 12/06/18 09:38 Dose: 1,000 mcg Duloxetine HCl (Cymbalta) 30 mg PO BID [facility] Last Admin: 12/06/18 09:38 Dose: 30 mg Enoxaparin Sodium (Lovenox) 50 mg SC DAILY [facility]; Protocol Last Admin: 12/06/18 09:38 Dose: 50 mg Ergocalciferol (Drisdol 50,000 Intl Units Cap) 1 cap PO Q7D [facility] Last Admin: 12/04/18 16:41 Dose: 1 cap Methadone HCl (Methadone) 160 mg PO DAILY [facility] Last Admin: 12/06/18 09:34 Dose: 160 mg Nystatin (Nystop Topical Powder) 1 applic TOP TID [facility] Last Admin: 12/06/18 09:42 Dose: 1 applic Pantoprazole Sodium (Protonix Ec Tab) 40 mg PO DAILY [facility] Last Admin: 12/06/18 09:38 Dose: 40 mg - Labs Labs: 12/04/18 04:50 12/04/18 04:50 PT 12.1 Seconds (9.8-13.1) 12/03/18 08:43 INR 1.1 12/03/18 08:43 - Constitutional Appears: No Acute Distress - Head Exam Head Exam: NORMAL INSPECTION - Eye Exam Eye Exam: PERRL - ENT Exam ENT Exam: Normal Exam - Neck Exam Neck Exam: Normal Inspection - Respiratory Exam Respiratory Exam: NORMAL BREATHING PATTERN - Cardiovascular Exam Cardiovascular Exam: REGULAR RHYTHM - GI/Abdominal Exam GI & Abdominal Exam: Soft, Normal Bowel Sounds Additional comments: Maceration/redness on Abdomen fold. - Extremities Exam Additional comments: BLE venous stasis dermatitis. Varicose veins. 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
[2018-12-07] MEDS: Enoxaparin 60 mg Syringe SC SCH (08:59)
[2018-12-07] MEDS: Pantoprazole 40 mg EC Tab PO SCH (09:00)
[2018-12-07 15:02] LABS: VITAMIN C < 0.1 mg/dL (0.2-2.1)
--- NOTE | 2018-12-07 16:49 | CP.PCM.PN ---
Subjective - Date & Time of Evaluation Date of Evaluation: 12/07/18 Time of Evaluation: 10:30 - Subjective Subjective: Dyspnea on exertion with dizziness and lightheadedness, no SOB at rest Objective - Vital Signs/Intake and Output Vital Signs (last 24 hours): Temp Pulse Resp BP Pulse Ox 98.2 F 62 18 105/71 95 12/07/18 16:12 12/07/18 16:12 12/07/18 16:12 12/07/18 16:12 12/07/18 12:12 - Medications Medications: Current Medications Acetaminophen (Tylenol 325mg Tab) 650 mg PO Q4 PRN PRN Reason: pain 3-7 Last Admin: 12/07/18 11:10 Dose: 650 mg Cyanocobalamin (Vitamin B12 1000 Mcg/Ml Inj) 1,000 mcg SC DAILY [facility] Last Admin: 12/07/18 09:00 Dose: 1,000 mcg Duloxetine HCl (Cymbalta) 30 mg PO BID [facility] Last Admin: 12/07/18 16:46 Dose: 30 mg Ergocalciferol (Drisdol 50,000 Intl Units Cap) 1 cap PO Q7D [facility] Last Admin: 12/04/18 16:41 Dose: 1 cap Methadone HCl (Methadone) 160 mg PO DAILY [facility] Last Admin: 12/07/18 08:57 Dose: 160 mg Nystatin (Nystop Topical Powder) 1 applic TOP TID [facility] Last Admin: 12/07/18 16:47 Dose: 1 applic Pantoprazole Sodium (Protonix Ec Tab) 40 mg PO DAILY [facility] Last Admin: 12/07/18 09:00 Dose: 40 mg - Labs Labs: 12/04/18 04:50 12/04/18 04:50 PT 12.1 Seconds (9.8-13.1) 12/03/18 08:43 INR 1.1 12/03/18 08:43 - Constitutional Appears: No Acute Distress - Head Exam Head Exam: NORMAL INSPECTION - Eye Exam Eye Exam: PERRL - ENT Exam ENT Exam: Normal Exam - Neck Exam Neck Exam: Normal Inspection - Respiratory Exam Respiratory Exam: NORMAL BREATHING PATTERN - Cardiovascular Exam Cardiovascular Exam: REGULAR RHYTHM - GI/Abdominal Exam GI & Abdominal Exam: Soft, Normal Bowel Sounds Additional comments: LOWER ABDOMEN FOLD WITH MACERATION/REDNESS - Extremities Exam Additional comments: BLE venous stasis dermatitits, varicose veins BLE - Back Exam Back Exam: tenderness (L-S) - Neurological Exam Neurological Exam: Alert, Oriented x3. 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
[2018-12-08] MEDS: Pantoprazole 40 mg EC Tab PO SCH (08:55)
--- NOTE | 2018-12-08 12:01 | PQF ---
PROVIDER RESPONSE TEXT: Major Depressive Disorder, Moderate, Recurrent REVIEWER QUERY TEXT: Depression Type MDD is documented in the Medical Record. Please specify 1) Severity: Mild, Moderate, or Severe. Severe depression is further specified as with psychotic symp toms/psychosis or without psychotic symptoms/psychosis. 2) Duration of Depression: single episode or recurrent, and whether in remission (partial or full). Rx: Cymbalta The patient's Clinical Indicators include: 43 yo male with h/o MDD, opioid use disorder, not compliant with psychiatric treatment. -Recommend to start Cymbalta -Psycho education provided that patient would benefit from outpatient psychiatric treatment and psych otherapy Query created by: Cat Fuentes on 12/08/2018 9:39 AM Electronically signed by: Erlinda Curry MD 12/08/2018 11:59 AM
--- NOTE | 2018-12-08 15:40 | CP.PCM.PCO ---
Assessment/Plan - Assessment and Plan (Free Text) Assessment: Patient seen and examined this morning Short of breath without oxygen via nasal cannula Six minute walk test revealed patient desaturated to 84% on room air with ambulation. Patient will be set up for oxygen at home-Nasal cannula 2Liters
--- NOTE | 2018-12-08 16:22 | CP.PCM.PN ---
Subjective - Date & Time of Evaluation Date of Evaluation: 12/08/18 Time of Evaluation: 10:20 - Subjective Subjective: F/U Venous stasis dermatitis BLE TALBOT, Dizziness walking Objective - Vital Signs/Intake and Output Vital Signs (last 24 hours): Temp Pulse Resp BP Pulse Ox 98.2 F 79 18 111/78 99 12/08/18 15:51 12/08/18 15:51 12/08/18 15:51 12/08/18 15:51 12/08/18 15:51 - Medications Medications: Current Medications Acetaminophen (Tylenol 325mg Tab) 650 mg PO Q4 PRN PRN Reason: pain 3-7 Last Admin: 12/07/18 16:52 Dose: 650 mg Cyanocobalamin (Vitamin B12 1000 Mcg/Ml Inj) 1,000 mcg SC DAILY [facility] Last Admin: 12/08/18 08:55 Dose: 1,000 mcg Duloxetine HCl (Cymbalta) 30 mg PO BID [facility] Last Admin: 12/08/18 08:56 Dose: 30 mg Ergocalciferol (Drisdol 50,000 Intl Units Cap) 1 cap PO Q7D [facility] Last Admin: 12/04/18 16:41 Dose: 1 cap Nystatin (Nystop Topical Powder) 1 applic TOP TID [facility] Last Admin: 12/08/18 14:23 Dose: 1 applic Pantoprazole Sodium (Protonix Ec Tab) 40 mg PO DAILY [facility] Last Admin: 12/08/18 08:55 Dose: 40 mg - Labs Labs: 12/04/18 04:50 12/04/18 04:50 PT 12.1 Seconds (9.8-13.1) 12/03/18 08:43 INR 1.1 12/03/18 08:43 - Constitutional Appears: No Acute Distress - Head Exam Head Exam: NORMAL INSPECTION - Eye Exam Eye Exam: PERRL - ENT Exam ENT Exam: Normal Exam - Neck Exam Neck Exam: Normal Inspection - Respiratory Exam Respiratory Exam: NORMAL BREATHING PATTERN - Cardiovascular Exam Cardiovascular Exam: REGULAR RHYTHM - GI/Abdominal Exam GI & Abdominal Exam: Soft, Normal Bowel Sounds Additional comments: Redness/maceration on abdomen fold area - Extremities Exam Additional comments: Venous stasis dermatitis BLE. Varicose veins BLE - Back Exam Back Exam: tenderness (L-S) - Neurological Exam Neurological Exam: Alert, Oriented x3. 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
[2018-12-09] MEDS: Pantoprazole 40 mg EC Tab PO SCH (08:47)
[2018-12-09] MEDS ORDERED: Albuterol 0.083% Inhal Sol (2.5 mg/3 mL) UD ONE (13:05)
--- NOTE | 2018-12-09 14:24 | CP.PCM.PCO ---
Assessment/Plan - Assessment and Plan (Free Text) Assessment: Patient seen and examined this morning during rounds Vital signs stable Patient with some TALBOT, on NC 2L today. Patient had a 6 minute walk test yesterday which showed patient desaturated to 86% with ambulation. PFT performed today shows patient has restrictive lung disease secondary to obesity. 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 All above discussed with Dr Teresa
[2018-12-09 15:55] LABS: BLOOD UREA NITROGEN 7 mg/dl (9-20); CALCIUM 8.3 mg/dL (8.4-10.2); GFR NON-AFRICAN AMERICAN > 60
--- NOTE | 2018-12-09 16:17 | CP.PCM.PN ---
Subjective - Date & Time of Evaluation Date of Evaluation: 12/09/18 Time of Evaluation: 10:00 - Subjective Subjective: F/U Venous stasis dermatitis BLE. TALBOT , dizziness walking Objective - Vital Signs/Intake and Output Vital Signs (last 24 hours): Temp Pulse Resp BP Pulse Ox 98.1 F 72 18 109/73 99 12/09/18 15:58 12/09/18 15:58 12/09/18 15:58 12/09/18 15:58 12/09/18 15:58 - Medications Medications: Current Medications Acetaminophen (Tylenol 325mg Tab) 650 mg PO Q4 PRN PRN Reason: pain 3-7 Last Admin: 12/08/18 18:03 Dose: 650 mg Ascorbic Acid (Vitamin C 500 Mg Tab) 1,000 mg PO DAILY [facility] Last Admin: 12/09/18 09:53 Dose: 1,000 mg Cyanocobalamin (Vitamin B12 1000 Mcg/Ml Inj) 1,000 mcg SC DAILY [facility] Last Admin: 12/09/18 08:47 Dose: 1,000 mcg Duloxetine HCl (Cymbalta) 30 mg PO BID [facility] Last Admin: 12/09/18 08:47 Dose: 30 mg Enoxaparin Sodium (Lovenox) 40 mg SC DAILY [facility]; Protocol Ergocalciferol (Drisdol 50,000 Intl Units Cap) 1 cap PO Q7D [facility] Last Admin: 12/04/18 16:41 Dose: 1 cap Methadone HCl (Methadone) 160 mg PO DAILY [facility] Last Admin: 12/09/18 09:06 Dose: 160 mg Nystatin (Nystop Topical Powder) 1 applic TOP TID [facility] Last Admin: 12/09/18 08:47 Dose: 1 applic Pantoprazole Sodium (Protonix Ec Tab) 40 mg PO DAILY [facility] Last Admin: 12/09/18 08:47 Dose: 40 mg - Labs Labs: 12/04/18 04:50 12/09/18 15:22 PT 12.1 Seconds (9.8-13.1) 12/03/18 08:43 INR 1.1 12/03/18 08:43 - Constitutional Appears: No Acute Distress, Other (overweight) - Head Exam Head Exam: NORMAL INSPECTION - Eye Exam Eye Exam: PERRL - ENT Exam ENT Exam: Normal Exam - Neck Exam Neck Exam: Normal Inspection - Respiratory Exam Respiratory Exam: NORMAL BREATHING PATTERN - Cardiovascular Exam Cardiovascular Exam: REGULAR RHYTHM - GI/Abdominal Exam GI & Abdominal Exam: Soft, Normal Bowel Sounds Additional comments: Redness/maceration abdominal wall fold area - Extremities Exam Additional comments: Venous stasis dermatitis BLE. Varicose veins BLE - Back Exam Back Exam: tenderness (L-S) - Neurological Exam Neurological Exam: Alert, Awake, Oriented x3. 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
[2018-12-09 17:59] LABS: HEMOGLOBIN 9.3 g/dL (12.0-18.0); MEAN CELL VOLUME 75.8 fl (80.0-94.0); MEAN CORPUSCULAR HGB CONC 31.7 g/dL (33.0-37.0); RBC 3.88 Mil/uL (4.40-5.90); RED CELL DISTRIBUTION WIDTH 17.2 % (11.5-14.5)
[2018-12-09] MEDS: Enoxaparin 40 mg Syringe SC SCH (18:07)
[2018-12-10] MEDS: Enoxaparin 40 mg Syringe SC SCH (09:27)
[2018-12-10] MEDS: Pantoprazole 40 mg EC Tab PO SCH (09:28)
--- NOTE | 2018-12-10 13:57 | CP.PCM.PN ---
Subjective - Date & Time of Evaluation Date of Evaluation: 12/10/18 Time of Evaluation: 12:00 - Subjective Subjective: F/U Venous stasis dermatitis BLE TALBOT, dizziness walking Objective - Vital Signs/Intake and Output Vital Signs (last 24 hours): Temp Pulse Resp BP Pulse Ox 98 F 74 18 128/83 99 12/10/18 12:02 12/10/18 12:02 12/10/18 12:02 12/10/18 12:02 12/10/18 12:02 - Medications Medications: Current Medications Acetaminophen (Tylenol 325mg Tab) 650 mg PO Q4 PRN PRN Reason: pain 3-7 Last Admin: 12/08/18 18:03 Dose: 650 mg Ascorbic Acid (Vitamin C 500 Mg Tab) 1,000 mg PO DAILY [facility] Last Admin: 12/10/18 09:28 Dose: 1,000 mg Cyanocobalamin (Vitamin B12 1000 Mcg/Ml Inj) 1,000 mcg SC DAILY [facility] Last Admin: 12/10/18 09:28 Dose: 1,000 mcg Duloxetine HCl (Cymbalta) 30 mg PO BID [facility] Last Admin: 12/10/18 09:28 Dose: 30 mg Enoxaparin Sodium (Lovenox) 40 mg SC DAILY [facility]; Protocol Last Admin: 12/10/18 09:27 Dose: 40 mg Ergocalciferol (Drisdol 50,000 Intl Units Cap) 1 cap PO Q7D [facility] Last Admin: 12/04/18 16:41 Dose: 1 cap Methadone HCl (Methadone) 160 mg PO DAILY [facility] Last Admin: 12/10/18 09:28 Dose: 160 mg Nystatin (Nystop Topical Powder) 1 applic TOP TID [facility] Last Admin: 12/10/18 09:31 Dose: 1 applic Pantoprazole Sodium (Protonix Ec Tab) 40 mg PO DAILY [facility] Last Admin: 12/10/18 09:28 Dose: 40 mg - Labs Labs: 12/09/18 17:30 12/09/18 15:22 PT 12.1 Seconds (9.8-13.1) 12/03/18 08:43 INR 1.1 12/03/18 08:43 - Constitutional Appears: No Acute Distress, Other (overweight) - Head Exam Head Exam: NORMAL INSPECTION - Eye Exam Eye Exam: PERRL - ENT Exam ENT Exam: Normal Exam - Neck Exam Neck Exam: Normal Inspection - Respiratory Exam Respiratory Exam: NORMAL BREATHING PATTERN - Cardiovascular Exam Cardiovascular Exam: REGULAR RHYTHM - GI/Abdominal Exam GI & Abdominal Exam: Soft, Normal Bowel Sounds Additional comments: Redness/ maceration abdominal wall fold area - Extremities Exam Additional comments: BLE venous stasis dermatitis, Assessment and Plan (1) Venous stasis dermatitis of both lower extremities Status: Acute (2) Respiratory distress Status: Acute (3) Anemia Status: Acute (4) Hx of deep venous thrombosis Status: Chronic (5) Hx pulmonary embolism Status: Chronic (6) Presence of IVC filter Status: Chronic (7) Depression Status: Acute (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
--- NOTE | 2018-12-10 14:23 | PQF ---
PROVIDER RESPONSE TEXT: Acute respiratory distress secondary to restrictive lung disease and obesity. REVIEWER QUERY TEXT: Symptom Underlying Cause Please document the underlying diagnosis causing the patient?s documented symptom(s) of Respiratory D istress status acute or unable to be further specified. Six minute walk test performed. The patient's Clinical Indicators include: 43 y/o M, PMHx: PE, DVT with IVC filter 15 yrs ago, Gastric Bypass, Anxiety, depression. [facility] for respiratory insufficiency, gradually increased from 2 weeks RN CLINICAL RESEARCH with no relief, describes as moderate SOB with exertion, associated to intermittent chest pain of moderate intensity when SOB. Worsening symptoms: C/O R leg pain, described as intermittent, sharp, pressure type, moderate intensity 7:10, associated to swelling/redness/erythema in the area, Pt on Methadone program for chronic back pain 2nd to multiple back surgeries and no improvement. CXR: No acute cardiopulmonary disease CT Chest: Unremarkable Venous Doppler: No DVT + Obesity with BMI 45.7 Query created by: Cat Fuentes on 12/09/2018 9:59 AM Electronically signed by: Gerardo Teresa MD 12/10/2018 2:20 PM
[2018-12-11] MEDS: Pantoprazole 40 mg EC Tab PO SCH (09:04)
[2018-12-11] MEDS: Enoxaparin 40 mg Syringe SC SCH (09:05)
[2018-12-11] MEDS: Ergocalciferol 50,000 Intl Units Cap PO SCH (12:44)
--- NOTE | 2018-12-11 13:40 | CP.PCM.PN ---
Subjective - Subjective Subjective: TALBOT with dixzziness and lightheadeness Objective - Vital Signs/Intake and Output Vital Signs (last 24 hours): Temp Pulse Resp BP Pulse Ox 98.1 F 66 20 108/72 98 12/11/18 12:08 12/11/18 12:08 12/11/18 12:08 12/11/18 12:08 12/11/18 12:08 - Medications Medications: Current Medications Acetaminophen (Tylenol 325mg Tab) 650 mg PO Q4 PRN PRN Reason: pain 3-7 Last Admin: 12/08/18 18:03 Dose: 650 mg Ascorbic Acid (Vitamin C 500 Mg Tab) 1,000 mg PO DAILY [facility] Last Admin: 12/11/18 09:05 Dose: 1,000 mg Cyanocobalamin (Vitamin B12 1000 Mcg/Ml Inj) 1,000 mcg SC DAILY [facility] Last Admin: 12/11/18 09:06 Dose: 1,000 mcg Duloxetine HCl (Cymbalta) 30 mg PO BID [facility] Last Admin: 12/11/18 09:05 Dose: 30 mg Enoxaparin Sodium (Lovenox) 40 mg SC DAILY [facility]; Protocol Last Admin: 12/11/18 09:05 Dose: 40 mg Ergocalciferol (Drisdol 50,000 Intl Units Cap) 1 cap PO Q7D [facility] Last Admin: 12/11/18 12:44 Dose: 1 cap Methadone HCl (Methadone) 160 mg PO DAILY [facility] Last Admin: 12/11/18 09:02 Dose: 160 mg Nystatin (Nystop Topical Powder) 1 applic TOP TID [facility] Last Admin: 12/11/18 12:44 Dose: 1 applic Pantoprazole Sodium (Protonix Ec Tab) 40 mg PO DAILY [facility] Last Admin: 12/11/18 09:04 Dose: 40 mg - Labs Labs: 12/09/18 17:30 12/09/18 15:22 PT 12.1 Seconds (9.8-13.1) 12/03/18 08:43 INR 1.1 12/03/18 08:43 - Constitutional Appears: No Acute Distress - Head Exam Head Exam: NORMAL INSPECTION - Eye Exam Eye Exam: PERRL - ENT Exam ENT Exam: Normal Exam - Neck Exam Neck Exam: Normal Inspection - Respiratory Exam Respiratory Exam: Decreased Breath Sounds (at bases) - Cardiovascular Exam Cardiovascular Exam: REGULAR RHYTHM - GI/Abdominal Exam GI & Abdominal Exam: Soft, Normal Bowel Sounds Additional comments: obese - Extremities Exam Additional comments: B/L L/E stasis dermatitis, varicose veins - Back Exam Back Exam: tenderness (L-S) - Neurological Exam Neurological Exam: Alert, Oriented x3. 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
[2018-12-11 17:28] LABS: VITAMIN K 70 pg/mL (80-1160)
[2018-12-12] MEDS: Enoxaparin 40 mg Syringe SC SCH (08:09)
[2018-12-12] MEDS: Pantoprazole 40 mg EC Tab PO SCH (08:10)
[2018-12-12 08:34] VITALS: RESP 20
--- NOTE | 2018-12-12 13:31 | CP.PCM.PN ---
Subjective - Subjective Subjective: TALBOT, dizziness walking Objective - Vital Signs/Intake and Output Vital Signs (last 24 hours): Temp Pulse Resp BP Pulse Ox 98.2 F 73 20 97/65 L 96 12/12/18 12:41 12/12/18 12:41 12/12/18 12:41 12/12/18 12:41 12/12/18 12:41 - Medications Medications: Current Medications Acetaminophen (Tylenol 325mg Tab) 650 mg PO Q4 PRN PRN Reason: pain 3-7 Last Admin: 12/11/18 22:18 Dose: 650 mg Ascorbic Acid (Vitamin C 500 Mg Tab) 1,000 mg PO DAILY [facility] Last Admin: 12/12/18 08:10 Dose: 1,000 mg Cyanocobalamin (Vitamin B12 1000 Mcg/Ml Inj) 1,000 mcg SC DAILY [facility] Last Admin: 12/12/18 08:10 Dose: 1,000 mcg Duloxetine HCl (Cymbalta) 30 mg PO BID [facility] Last Admin: 12/12/18 08:10 Dose: 30 mg Enoxaparin Sodium (Lovenox) 40 mg SC DAILY [facility]; Protocol Last Admin: 12/12/18 08:09 Dose: 40 mg Ergocalciferol (Drisdol 50,000 Intl Units Cap) 1 cap PO Q7D [facility] Last Admin: 12/11/18 12:44 Dose: 1 cap Methadone HCl (Methadone) 160 mg PO DAILY [facility] Nystatin (Nystop Topical Powder) 1 applic TOP TID [facility] Last Admin: 12/12/18 13:01 Dose: 1 applic Pantoprazole Sodium (Protonix Ec Tab) 40 mg PO DAILY [facility] Last Admin: 12/12/18 08:10 Dose: 40 mg - Labs Labs: 12/09/18 17:30 12/09/18 15:22 PT 12.1 Seconds (9.8-13.1) 12/03/18 08:43 INR 1.1 12/03/18 08:43 - Constitutional Appears: No Acute Distress - Head Exam Head Exam: NORMOCEPHALIC - Eye Exam Eye Exam: PERRL - ENT Exam ENT Exam: Normal Exam - Neck Exam Neck Exam: Normal Inspection - Respiratory Exam Respiratory Exam: Decreased Breath Sounds (at bases) - Cardiovascular Exam Cardiovascular Exam: REGULAR RHYTHM - GI/Abdominal Exam GI & Abdominal Exam: Soft, Normal Bowel Sounds Additional comments: obese - Extremities Exam Additional comments: B/L L/E stasis dermatitis, varicose veins - Neurological Exam Neurological Exam: Alert, Oriented x3. 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
[2018-12-12 18:59] VITALS: BP 117/82; PULSE 80; TEMP 98.6; O2SAT 97
--- NOTE | 2018-12-13 16:38 | CP.PCM.DIS ---
Provider - Provider Date of Admission: 12/05/18 15:59 Attending physician: Gerardo Teresa MD Consults: 12/03/18 18:20 Cardiology Consult Routine Comment: Consulting Provider: Sg Acosta Consulting Physician: Sg Acosta Reason for Consult: Intermittent chest pain and SOB Infectious Disease Consult Routine Comment: Consulting Provider: Rajni Claros Consulting Physician: Rajni Claros Reason for Consult: cellulitis 12/03/18 20:36 Wound Care [Nursing Referral for Wound Care] Routine Comment: Physician Instructions: Reason For Exam: redness on abdomen skin flap 12/04/18 13:38 Psychiatry Consult Routine Comment: depression Consulting Provider: Erlinda Curry Consulting Physician: Erlinda Curry Reason for Consult: hx depression; currently w/ sx dep; was on zoloft trazadone Diagnosis - Discharge Diagnosis (1) Venous stasis dermatitis of both lower extremities Status: Acute Priority: High (2) Respiratory distress Status: Acute Priority: High (3) Anemia Status: Acute Priority: High (4) Hx of deep venous thrombosis Status: Chronic (5) Hx pulmonary embolism Status: Chronic (6) Presence of IVC filter Status: Chronic (7) Depression Status: Acute (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 Priority: High (9) Obesity Status: Chronic Priority: High (10) Restrictive lung disease secondary to obesity Status: Acute Hospital Course - Lab Results Lab Results: Micro Results 12/03/18 08:13 Blood-Venous Blood Culture - Final NO GROWTH AFTER 5 DAYS 12/03/18 08:13 Blood-Venous Gram Stain - Final TEST NOT PERFORMED 12/03/18 08:43 Blood-Venous Blood Culture - Final NO GROWTH AFTER 5 DAYS 12/03/18 08:43 Blood-Venous Gram Stain - Final TEST NOT PERFORMED Most Recent Lab Values WBC 5.0 K/uL (4.8-10.8) 12/09/18 17:30 RBC 3.88 Mil/uL (4.40-5.90) L 12/09/18 17:30 Hgb 9.3 g/dL (12.0-18.0) L 12/09/18 17:30 Hct 29.4 % (35.0-51.0) L 12/09/18 17:30 MCV 75.8 fl (80.0-94.0) L 12/09/18 17:30 MCH 24.0 pg (27.0-31.0) L 12/09/18 17:30 MCHC 31.7 g/dL (33.0-37.0) L 12/09/18 17:30 RDW 17.2 % (11.5-14.5) H 12/09/18 17:30 Plt Count 182 K/uL (130-400) 12/09/18 17:30 MPV 8.0 fl (7.2-11.7) 12/03/18 08:43 Neut % (Auto) 67.5 % (50.0-75.0) 12/03/18 08:43 Lymph % (Auto) 24.2 % (20.0-40.0) 12/03/18 08:43 Sargent % (Auto) 6.2 % (0.0-10.0) 12/03/18 08:43 Eos % (Auto) 1.3 % (0.0-4.0) 12/03/18 08:43 Baso % (Auto) 0.8 % (0.0-2.0) 12/03/18 08:43 Neut # (Auto) 3.9 K/uL (1.8-7.0) 12/03/18 08:43 Lymph # (Auto) 1.4 K/uL (1.0-4.3) 12/03/18 08:43 Sargent # (Auto) 0.4 K/uL (0.0-0.8) 12/03/18 08:43 Eos # (Auto) 0.1 K/uL (0.0-0.7) 12/03/18 08:43 Baso # (Auto) 0.0 K/uL (0.0-0.2) 12/03/18 08:43 ESR 39 mm/hr (0-15) H 12/04/18 14:25 PT 12.1 Seconds (9.8-13.1) 12/03/18 08:43 INR 1.1 12/03/18 08:43 Lupus Anticoagulant see note 12/04/18 14:25 LA PTT Screen 29 sec (<=40) 12/04/18 14:25 dRVVT Mixing Study 36 sec (<=45) 12/04/18 14:25 dRVVT Mix Interpret Not indicated 12/04/18 14:25 Protein C Activity 75 % (70-180) 12/04/18 14:25 Protein S Activity 83 % (70-150) 12/04/18 14:25 Antithrombin III Activ 86 % activity (80-120) 12/04/18 14:25 Factor V see note 12/04/18 14:25 pCO2 45 mm/Hg (35-45) 12/06/18 10:41 pO2 75 mm/Hg (80-100) L 12/06/18 10:41 HCO3 24.1 mmol/L (21-28) 12/06/18 10:41 ABG pH 7.35 (7.35-7.45) 12/06/18 10:41 ABG Total CO2 26.2 mmol/L (22-28) 12/06/18 10:41 ABG O2 Saturation 97.5 % (95-98) 12/06/18 10:41 ABG O2 Content 14.3 ML/dL (15-23) L 12/06/18 10:41 ABG Base Excess -1.0 mmol/L (-2.0-3.0) 12/06/18 10:41 ABG Hemoglobin 10.7 g/dL (11.7-17.4) L 12/06/18 10:41 ABG Carboxyhemoglobin 1.6 % (0.5-1.5) H 12/06/18 10:41 POC ABG HHb (Measured) 2.4 % (0.0-5.0) 12/06/18 10:41 ABG Methemoglobin 1.1 % (0.0-3.0) 12/06/18 10:41 ABG O2 Capacity 14.7 mL/dL (16-24) L 12/06/18 10:41 Armani Test Yes 12/06/18 10:41 A-a O2 Difference 18.0 mm/Hg 12/06/18 10:41 Hgb O2 Saturation 94.8 % (95.0-98.0) L 12/06/18 10:41 FiO2 21.0 % 12/06/18 10:41 Sodium 132 mmol/l (132-148) 12/09/18 15:22 Potassium 4.3 MMOL/L (3.6-5.0) 12/09/18 15:22 Chloride 93 mmol/L (98-107) L 12/09/18 15:22 Carbon Dioxide 29 mmol/L (22-30) 12/09/18 15:22 Anion Gap 14 (10-20) 12/09/18 15:22 BUN 7 mg/dl (9-20) L 12/09/18 15:22 Creatinine 1.0 mg/dl (0.8-1.5) 12/09/18 15:22 Est GFR ( Amer) > 60 12/09/18 15:22 Est GFR (Non-Af Amer) > 60 12/09/18 15:22 Random Glucose 110 mg/dL (75-110) 12/09/18 15:22 Hemoglobin A1c 5.6 % (4.2-6.5) 12/05/18 04:25 Lactic Acid 1.8 mmol/L (0.7-2.1) 12/04/18 14:25 Calcium 8.3 mg/dL (8.4-10.2) L 12/09/18 15:22 Iron 39 ug/dL (49-181) L 12/04/18 04:50 Total Bilirubin 0.6 mg/dl (0.2-1.3) 12/03/18 08:43 AST 19 U/L (17-59) 12/03/18 08:43 ALT 16 U/L (21-72) L D 12/03/18 08:43 Alkaline Phosphatase 71 U/L (38-126) 12/03/18 08:43 Troponin I < 0.0120 ng/mL (0.00-0.120) 12/04/18 10:35 NT-Pro-B Natriuret Pep 156 pg/ml (0-450) 12/03/18 08:43 Total Protein 7.0 G/DL (6.3-8.2) 12/03/18 08:43 Albumin 3.5 g/dL (3.5-5.0) 12/03/18 08:43 Globulin 3.4 gm/dL (2.2-3.9) 12/03/18 08:43 Albumin/Globulin Ratio 1.0 (1.0-2.1) 12/03/18 08:43 Triglycerides 52 mg/DL (0-149) D 12/05/18 04:25 Cholesterol 123 mg/dL (0-199) 12/05/18 04:25 LDL Cholesterol Direct 75 mg/dL (0-129) 12/05/18 04:25 HDL Cholesterol 35 MG/DL (30-70) 12/05/18 04:25 Vitamin A 9 mcg/dL (38-98) L 12/04/18 05:00 Vitamin B1 51 nmol/L (78-185) L 12/04/18 04:50 Vitamin B6 4.3 ng/mL (2.1-21.7) 12/04/18 04:50 Vitamin B12 265 pg/mL (239-931) 12/04/18 04:50 Vitamin C < 0.1 mg/dL (0.2-2.1) L 12/04/18 04:50 25-OH Vitamin D Total < 12.8 NG/ML (30.0-100.0) L 12/04/18 04:50 Vitamin K 70 pg/mL (80-1160) L 12/04/18 04:50 TSH 3rd Generation 1.59 mIU/ML (0.46-4.68) 12/04/18 04:50 MYNOR Screen Negative (Negative) 12/04/18 14:25 MTHFR DNA Mutation Anal see note H 12/04/18 14:25 MTHFR Interpretation see note 12/04/18 14:25 MTHFR Reviewed By see note 12/04/18 14:25 Discharge Exam - Head Exam Head Exam: NORMOCEPHALIC Discharge Plan - Discharge Medications Prescriptions: DULoxetine [Cymbalta] 30 mg PO BID #60 ecc Ergocalciferol [Drisdol 50,000 Intl Units Cap] 1 cap PO Q7D #30 cap - Follow Up Plan Condition: STABLE Disposition: HOME/ ROUTINE Instructions: Shortness of Breath (Dyspnea) (DC) Additional Instructions: follow up with in 1 week Referrals: Gerardo Teresa MD [Staff Provider] -
== END 2018-12-12 19:20 | disposition home or self-care (01) | DRG 300 ==
LOC: H.ER 06:26 → H.ERHOLD 13:57 → H.TEL 17:19 → OBSVTOIN 12-05 15:59
PROVIDERS: ADMIT Internal Medicine Pulmonary Disease; ATTEND Internal Medicine Pulmonary Disease
DX: I87.2 Venous insufficiency (chronic) (peripheral) (principal); F11.20 Opioid dependence, uncomplicated; Z68.41 Body mass index [BMI] 40.0-44.9, adult; F33.1 Major depressive disorder, recurrent, moderate; I87.8 Other specified disorders of veins; E66.01 Morbid (severe) obesity due to excess calories; R06.03 Acute respiratory distress; J98.4 Other disorders of lung; L30.4 Erythema intertrigo; J44.9 Chronic obstructive pulmonary disease, unspecified; K06.8 Other specified disorders of gingiva and edentulous alveolar ridge; K02.9 Dental caries, unspecified; D64.9 Anemia, unspecified; R07.9 Chest pain, unspecified; G89.29 Other chronic pain; Z91.19 Patient's noncompliance with other medical treatment and regimen; Z86.718 Personal history of other venous thrombosis and embolism; Z86.711 Personal history of pulmonary embolism; Z98.84 Bariatric surgery status